=== PATIENT | female | born 1955 | race Caucasian/White ===

== ENCOUNTER → 2018-03-02 15:55 | Outpatient (CLI) | payer OTHER, SELFPAY ==
--- NOTE | 2018-03-02 16:12 | XR_ITS ---
EXAM: XR cervical spine 5V HISTORY: Neck pain ITS.REASON: CERVICALGIA ORDERING PHYSICIAN: Erin Carmichael PATIENT AGE: 62 years COMPARISON: 03/19/2016 FINDINGS: Normal alignment. No fracture or dislocation. No lytic or blastic change. There is multilevel degenerative disc disease at C4-5 and greater at C5-C6 and C6-C7 and C7-T1. Prominent anterior bridging osteophytes are present at C3 to see 7/T1 consistent with DISH. No significant foraminal narrowing evident. IMPRESSION: Degenerative disc disease from C4 to T1. Diffuse idiopathic skeletal hyperostosis of the cervical spine
== END ==
PROVIDERS: PCP Family Medicine; Visit Provider Nurse Practitioner
DX: M54.2 Cervicalgia (principal)
CPT/HCPCS: 72050

== ENCOUNTER → 2018-03-04 14:58 | Outpatient (CLI) | payer OTHER, SELFPAY ==
--- NOTE | 2018-03-04 15:02 | NVE_ITS ---
Venous Exam Indications: 729.5 Pain in limb. IMPRESSIONS 1. There is no evidence of significant Reflux. 2. No evidence of deep or superficial vein thrombosis involving the right lower extremity History: Right lower extremity pain. Swelling of the right lower extremity. Risk factors: Hypertension. Patient denies trauma. Patient takes 81 mg ASA daily. Renal disease. Right lower extremity venous duplex evaluation. Doppler flow study including spectral analysis, color and vincent scale imaging. Location: Vascular laboratory. Patient status: Outpatient. Tables: Venous flow and imaging: + +-------+ + Location Overall Flow properties + +-------+ + Right common femoral Patent Normal phasicity; spontaneous; normal augmentation; compressible + +-------+ + Right saphenofemoral junction Patent Compressible + +-------+ + Right profunda femoral Patent Compressible + +-------+ + Right femoral Patent Normal phasicity; spontaneous; normal augmentation; compressible + +-------+ + Right greater saphenous Patent Normal phasicity; spontaneous; normal augmentation; compressible + +-------+ + Right popliteal Patent Normal phasicity; spontaneous; normal augmentation; compressible + +-------+ + Right posterior tibial Patent Compressible + +-------+ + Right peroneal Patent Compressible + +-------+ + Right gastrocnemius Patent Compressible + +-------+ + Right soleal Patent Compressible + +-------+ + (Report amended ) Electronically signed by: Misael Webster [id number]
== END ==
PROVIDERS: PCP Nurse Practitioner; Visit Provider Nurse Practitioner
DX: M79.604 Pain in right leg (principal)
CPT/HCPCS: 93971

== ENCOUNTER 2018-05-16 13:33 | Emergency (ER) | payer OTHER, SELFPAY ==
[2018-05-16 13:40] VITALS: BP 128/61; PULSE 108; RESP 20; TEMP 37.2; O2SAT 97; BMI 35.9
--- NOTE | 2018-05-16 13:49 | XR_ITS ---
XR femur LT 2V, XR hip LT 2-3V w/pelvis Ordering Physician: Neelima Rosales MD Patient Age: 63 years: Female HISTORY: ITS.REASON: fall Dog knocked her off porch. Left hip pain large hematoma left hip. TECHNIQUE:. LEFT HIP 2 VIEWS WITH AP PELVIS LEFT FEMUR 2 views femur COMPARISON : CT abdomen 2011 which included left hip ====== LEFT HIP 2 VIEWS with AP pelvis Left hip no acute fracture. Hip joint spaces well-maintained. Mild osseous protuberance at the lesser trochanter likely reflects calcification along ligamentous attachment.. . AP PELVIS AP osseous pelvisis intact with no additional features . Hip joint spaces are well-maintained bilaterally - LEFT FEMUR 2 views femur Left femur is intact no fracture. Arthritic changes at the left knee most evident at medial compartment. The left femoral shaft intact. IMPRESSION: Left hip intact no fracture No acute findings Osseous pelvis intact Left femur intact no fracture Arthritic changes at left knee
--- NOTE | 2018-05-16 13:49 | XR_ITS ---
XR foot LT min 3V HISTORY: Left foot pain after a fall ITS.REASON: fall ORDERING PHYSICIAN: Neelima Rosaels MD PATIENT AGE: 63 years COMPARISON: Left foot 04/06/2014 FINDINGS: There is an oblique fracture through the head of the second metatarsal without significant angulation. There is a probable fracture through the head of the third metatarsal as well. There may be an old healed fracture at the base of the third metatarsal. All phalanges appear intact. The tarsal bones appear intact, there is a small accessory navicular bone is noted previously. There are prominent spurs of the calcaneus at insertion of plantar tendon and Achilles tendon. Again noted is the metallic plate distal fibula with several threaded screws. IMPRESSION: Fractures of the heads of the second third metatarsals along with rather prominent calcaneal spurs as noted
--- NOTE | 2018-05-16 15:09 | HMH.EDFALL ---
ED Disposition Clinical Impression: Metatarsal stress fracture of left foot, Hematoma of left hip, Head injury Disposition: Home, Self-Care Condition on Discharge: Fair Additional Instructions: 1- to see mikel Allen immediately after the ED visit. 2- elevate left hip and ice. 3- use crutches or walker 4- head injury instructions and return for a ct scan as we discussed. 5- follow up with pcp in AM. Referrals: Erin Carmichael APRN [Primary Care Provider] - - Critical Care Critical Care Time: No Attestation: On 05/16/18, the high probability of a clinically significant, sudden or life threatening deterioration of the following system(s) required my full and direct attention, intervention and personal management. The time I documented below is in addition to time spent performing reported procedures but includes the following listed in this critical care notation. Medical Decision Making - Mickey Inquiry Pt receiving controlled substance: No Mickey was queried for this patient: No Vital Signs: 05/16/18 13:40 Temperature 98.9 F Temperature Source Oral Pulse Rate [Right Radial] 108 H Respiratory Rate 20 Blood Pressure [Right Arm] 128/61 Blood Pressure Mean [Right Arm] 83 Blood Pressure Source [Right Arm] Automatic Cuff Blood Pressure Position [Right Arm] Sitting 02 Sat by Pulse Oximetry 97 Oxygen Delivery Method Room Air Orders (Tests/Meds): ED MEDICATIONS Discontinued Medications Generic Name Dose Route Start Last Admin Trade Name Freq PRN Reason Stop Dose Admin Hydrocodone Bitart/Acetaminophen 1 tab 05/16/18 13:51 05/16/18 13:55 [place] 5/325mg Tablet PO 05/16/18 13:52 1 tab ONCE ONE Administration ORDERS Category Date Time Status Femur XR left 2 views [XR femur LT 2V] Stat Exams 05/16/18 13:50 Taken Foot XR left minimum 3 views [XR foot LT min 3V] Stat Exams 05/16/18 13:49 Taken XR hip LT 2-3V w/pelvis Stat Exams 05/16/18 13:49 Taken - Radiology Data #1 Image(s): Hip, Femur, Foot/Toes Image Reviewed: Yes I reviewed the patient's radiology image Preliminary Findings: Normal/NAD I reviewed the hip femur and x-ray with Dr. Quintanilla and there was no acute fracture. I reviewed her left foot x-ray with Dr. Scott and she does have a sling left second and possible left third metatarsal fracture. Medical Decision Narrative: I reviewed the hip femur and x-ray with Dr. Quintanilla and there was no acute fracture. I reviewed her left foot x-ray with Dr. Cook and she does have a sling left second and possible left third metatarsal fracture. I spoke with Dr. Cook the junior accounting clerk who agreed to see the patient after immediately the ED visit. The patient declined declined undergoing a CT scan of her head in the presence of her daughter . They were agreeable for a head injury instruction. Fall HPI - General Chief Complaint: Extremity Injury, Lower Stated Complaint: AO 05/16/18 injury to left fot Time Seen by Provider: 05/16/18 13:45 Mode of Arrival: Wheelchair Limitations: No Limitations Description of Symptoms (Recalled from ER Triage Doc. by RN): Pt states that she was taking the dog outside when it took off after a rabbit and she fell hitting the concrete and ground on her left hip. States he left foot and hip hurt. Bruising and swelling noted to left hip. She states that she hit her head but denies any LOC. Pt is able to feel when I touch her left foot and leg. - History of Present Illness HPI Narrative: 63 years old white female who was walking her dog when he saw a rabbit so he injected his chain she tripped fell and landed on her left foot and left hip region with a result of large size hematoma on the lateral aspect of the upper thigh. Also she stated that she hit her head with no loss of consciousness nausea or neck pain. The patient was able to stand up walk up the steps but her left foot was hurting. Sh
--- NOTE | 2018-05-16 15:13 | ED_ITS ---
ED Disposition Clinical Impression: Metatarsal stress fracture of left foot, Hematoma of left hip, Head injury Disposition: Home, Self-Care Condition on Discharge: Fair Additional Instructions: 1- to see mikel Allen immediately after the ED visit. 2- elevate left hip and ice. 3- use crutches or walker 4- head injury instructions and return for a ct scan as we discussed. 5- follow up with pcp in AM. Referrals: Erin Carmichael APRN [Primary Care Provider] - - Critical Care Critical Care Time: No Attestation: On 05/16/18, the high probability of a clinically significant, sudden or life threatening deterioration of the following system(s) required my full and direct attention, intervention and personal management. The time I documented below is in addition to time spent performing reported procedures but includes the following listed in this critical care notation. Medical Decision Making - Mickey Inquiry Pt receiving controlled substance: No Mickey was queried for this patient: No Vital Signs: 05/16/18 13:40 Temperature 98.9 F Temperature Source Oral Pulse Rate [Right Radial] 108 H Respiratory Rate 20 Blood Pressure [Right Arm] 128/61 Blood Pressure Mean [Right Arm] 83 Blood Pressure Source [Right Arm] Automatic Cuff Blood Pressure Position [Right Arm] Sitting 02 Sat by Pulse Oximetry 97 Oxygen Delivery Method Room Air Orders (Tests/Meds): ED MEDICATIONS Discontinued Medications Generic Name Dose Route Start Last Admin Trade Name Freq PRN Reason Stop Dose Admin Hydrocodone Bitart/Acetaminophen 1 tab 05/16/18 13:51 05/16/18 13:55 [place] 5/325mg Tablet PO 05/16/18 13:52 1 tab ONCE ONE Administration ORDERS Category Date Time Status Femur XR left 2 views [XR femur LT 2V] Stat Exams 05/16/18 13:50 Taken Foot XR left minimum 3 views [XR foot LT min 3V] Stat Exams 05/16/18 13:49 Taken XR hip LT 2-3V w/pelvis Stat Exams 05/16/18 13:49 Taken - Radiology Data #1 Image(s): Hip, Femur, Foot/Toes Image Reviewed: Yes I reviewed the patient's radiology image Preliminary Findings: Normal/NAD I reviewed the hip femur and x-ray with Dr. Quintanilla and there was no acute fracture. I reviewed her left foot x-ray with Dr. Scott and she does have a sling left second and possible left third metatarsal fracture. Medical Decision Narrative: I reviewed the hip femur and x-ray with Dr. Quintanilla and there was no acute fracture. I reviewed her left foot x-ray with Dr. Cook and she does have a sling left second and possible left third metatarsal fracture. I spoke with Dr. Cook the sumatra opener who agreed to see the patient after immediately the ED visit. The patient declined declined undergoing a CT scan of her head in the presence of her daughter . They were agreeable for a head injury instruction. Fall HPI - General Chief Complaint: Extremity Injury, Lower Stated Complaint: AO 05/16/18 injury to left fot Time Seen by Provider: 05/16/18 13:45 Mode of Arrival: Wheelchair Limitations: No Limitations Description of Symptoms (Recalled from ER Triage Doc. by RN): Pt states that she was taking the dog outside when it took off after a rabbit and she fell hit
[2018-05-16 15:38] VITALS: BP 132/79; PULSE 88; RESP 16; TEMP 36.7
== END 2018-05-16 15:47 | disposition home or self-care (01) ==
PROVIDERS: Emergency Provider Emergency Medicine; Family Provider Nurse Practitioner Family; PCP Nurse Practitioner
DX: M84.375A Stress fracture, left foot, initial encounter for fracture (principal); S70.02XA Contusion of left hip, initial encounter; Z79.82 Long term (current) use of aspirin; E11.9 Type 2 diabetes mellitus without complications; M81.0 Age-related osteoporosis without current pathological fracture; W01.0XXA Fall on same level from slipping, tripping and stumbling without subsequent striking against object, initial encounter; Y93.K1 Activity, walking an animal; Y92.018 Other place in single-family (private) house as the place of occurrence of the external cause
CPT/HCPCS: 73502; 73552; 73630; 99282

== ENCOUNTER → 2018-05-19 14:14 | Outpatient (CLI) | payer OTHER, SELFPAY ==
--- NOTE | 2018-05-19 | NVE_ITS ---
Venous Exam Indications: 729.5 Pain in limb. IMPRESSIONS No evidence of deep or superficial vein thrombosis involving the left lower extremity Complete lower extremity venous duplex evaluation. Doppler flow study including spectral analysis, color and vincent scale imaging. Location: Vascular laboratory. Patient status: Outpatient. Tables: Venous flow and imaging: + +-------+ + Location Overall Flow properties + +-------+ + Left common femoral Patent Normal phasicity; spontaneous; normal augmentation; compressible + +-------+ + Left saphenofemoral junction Patent Compressible + +-------+ + Left profunda femoral Patent Compressible + +-------+ + Left femoral Patent Normal phasicity; spontaneous; normal augmentation; compressible + +-------+ + Left greater saphenous Patent Normal phasicity; spontaneous; normal augmentation; compressible + +-------+ + Left popliteal Patent Normal phasicity; spontaneous; normal augmentation; compressible + +-------+ + Left posterior tibial Patent Compressible + +-------+ + Left peroneal Patent Compressible + +-------+ + Left gastrocnemius Patent Compressible + +-------+ + Left soleal Patent Compressible + +-------+ + (Report amended ) Electronically signed by: Misael Webster [id number]
== END ==
PROVIDERS: PCP Nurse Practitioner; Visit Provider Nurse Practitioner
DX: M25.552 Pain in left hip (principal); M25.452 Effusion, left hip
CPT/HCPCS: 93971

== ENCOUNTER → 2018-05-30 12:03 | Outpatient (CLI) | payer OTHER, SELFPAY ==
--- NOTE | 2018-05-30 12:26 | XR_ITS ---
XR hip LT 2-3V w/pelvis HISTORY: ITS.REASON: LT HIP PAIN ORDERING PHYSICIAN: Erin Carmichael PATIENT AGE: 63 years COMPARISON: 05/16/2018 FINDINGS: There are mild osteoarthritic changes of the left tibia similar to the previous exam. Calcific density is present at the lesser trochanter may be due to ligamentous calcification or an old avulsion fracture. No acute fracture, dislocation, or destructive osseous evident. IMPRESSION: Mild osteoarthritis of the left hip Ligamentous calcification versus old avulsion injury at the left
== END ==
PROVIDERS: PCP Nurse Practitioner; Visit Provider Nurse Practitioner
DX: M25.552 Pain in left hip (principal)
CPT/HCPCS: 73502

== ENCOUNTER → 2018-06-07 10:24 | Outpatient (CLI) | payer OTHER, SELFPAY ==
--- NOTE | 2018-06-07 10:26 | XR_ITS ---
XR foot wt bearing LT 3V HISTORY: Fracture ITS.REASON: fracture follow up ORDERING PHYSICIAN: Erica Jerry DPM PATIENT AGE: 63 years COMPARISON: Left foot 05/16/2018 FINDINGS: There is some blurring of the fracture line of the head of the second metatarsal and also of the head of the third metatarsal. The prominent calcaneal spurs are again noted and there is mild pes planus. IMPRESSION: Healing fractures heads of second third metatarsal with only minor stable angulation at the fracture sites
== END ==
PROVIDERS: Visit Provider Podiatrist
DX: T14.8XXA Other injury of unspecified body region, initial encounter (principal)
CPT/HCPCS: 73630

== ENCOUNTER → 2018-07-13 08:07 | Outpatient (CLI) | payer OTHER, SELFPAY ==
--- NOTE | 2018-07-13 08:08 | XR_ITS ---
XR foot wt bearing LT 3V HISTORY: Follow-up fracture ITS.REASON: fracture ORDERING PHYSICIAN: Erica Jerry DPM PATIENT AGE: 63 years COMPARISON: 06/07/2018 FINDINGS: Healing oblique fractures present involving the distal shaft of the second metatarsal and the distal shaft of the third metatarsal. Increasing callous formation is present with good alignment and no significant displacement. There has been prior ORIF of the distal fibula. IMPRESSION: Healing nondisplaced fractures of the second and third metatarsals
== END ==
PROVIDERS: Visit Provider Podiatrist
DX: S92.302A Fracture of unspecified metatarsal bone(s), left foot, initial encounter for closed fracture (principal)
CPT/HCPCS: 73630

== ENCOUNTER → 2018-08-05 09:39 | Outpatient (CLI) | payer OTHER, SELFPAY ==
--- NOTE | 2018-08-05 09:40 | XR_ITS ---
XR foot wt bearing LT 3V HISTORY: Follow-up fracture ITS.REASON: fracture follow-up ORDERING PHYSICIAN: Erica Jerry DPM PATIENT AGE: 63 years COMPARISON: 07/13/2018 FINDINGS: There is a healing oblique fracture of the distal aspect of the second metatarsal and the distal aspect of the third metatarsal. There is good alignment. Only minimal lateral displacement of the distal fracture fragment the second digit noted. Prior ORIF of the distal fibula IMPRESSION: Overall no change healing second and third metatarsal fractures
== END ==
PROVIDERS: PCP Nurse Practitioner; Visit Provider Podiatrist
DX: S92.322A Displaced fracture of second metatarsal bone, left foot, initial encounter for closed fracture (principal); T14.8XXA Other injury of unspecified body region, initial encounter; M79.672 Pain in left foot
CPT/HCPCS: 73630

== ENCOUNTER → 2018-09-02 12:35 | Outpatient (CLI) | payer MEDICAID, SELFPAY ==
--- NOTE | 2018-09-02 12:41 | XR_ITS ---
XR foot wt bearing LT 3V HISTORY: ITS.REASON: fracture follow up ORDERING PHYSICIAN: Erica Jerry DPM PATIENT AGE: 63 years COMPARISON: 07/13/2018 FINDINGS: Healing fractures once again noted involving the distal aspect of the second metatarsal. Fracture line is less apparent and nondisplaced. Healing nondisplaced fracture of the distal aspect of the third metatarsal also noted unchanged. Prior ORIF of the ankle. IMPRESSION: Good alignment healing fractures third and second metatarsals
== END ==
PROVIDERS: PCP Family Medicine; Visit Provider Podiatrist
DX: M84.375A Stress fracture, left foot, initial encounter for fracture (principal)
CPT/HCPCS: 73630

== ENCOUNTER → 2018-11-07 15:22 | Outpatient (CLI) | payer MEDICAID, SELFPAY ==
--- NOTE | 2018-11-07 15:30 | XR_ITS ---
EXAM: XR lumbar spine min 4V HISTORY: Low back pain ITS.REASON: LEFT ARM NUMBNESS,CERVICALGIA,LEFT SIDED LOW BACK PAIN ORDERING PHYSICIAN: Rose Carlson PATIENT AGE: 63 years COMPARISON: None FINDINGS: Normal alignment. No fracture or dislocation. Mild degenerative disc disease from L3 to S1 with some decrease in the disc space and endplate osteophytes. Mild facet arthritic changes L4-L5 and L5-S1. Incidental vascular calcification of the aorta. IMPRESSION: Mild lumbar spondylosis with degenerative disc disease and facet arthritic change
--- NOTE | 2018-11-07 15:30 | XR_ITS ---
EXAM: XR cervical spine 5V HISTORY: ITS.REASON: LEFT ARM NUMBNESS,CERVICALGIA,LEFT SIDED LOW BACK PAIN ORDERING PHYSICIAN: Rose Carlson PATIENT AGE: 63 years COMPARISON: None FINDINGS: Normal alignment. Degenerative disc disease is present from C4-T1. Prominent bridging anterior osteophytes are present at C3, C4, C5, C6, and C7 consistent with DISH of the cervical spine. No fracture or dislocation. Mild foraminal narrowing on the left at C6-C7. Carotid artery calcification is also noted. Mild facet hypertrophic changes present on the left C3-C7 IMPRESSION: 1. DISH of the cervical spine 2. Degenerative disc disease and facet arthritic change
--- NOTE | 2018-11-07 15:30 | XR_ITS ---
XR shoulder LT min 2V HISTORY: Left shoulder pain ITS.REASON: LEFT ARM NUMBNESS,CERVICALGIA,LEFT SIDED LOW BACK PAIN ORDERING PHYSICIAN: Roes Carlson PATIENT AGE: 63 years Comparison: None FINDINGS: There are mild osteoarthritic changes of the AC joint and glenohumeral joint. Prominent spurring is present along the inferior surface of the acromion causing subacromial stenosis and may result in impingement symptomatology upon the rotator cuff and could be confirmed with MRI if clinically warranted. No fracture or dislocation. No lytic or blastic change. IMPRESSION: Mild osteoarthritis with subacromial stenosis
== END ==
PROVIDERS: PCP Nurse Practitioner Family; Visit Provider Nurse Practitioner Family
DX: M54.2 Cervicalgia (principal); M54.42 Lumbago with sciatica, left side; R20.0 Anesthesia of skin
CPT/HCPCS: 72050; 72110; 73030

== ENCOUNTER → 2018-12-01 15:30 | Outpatient (CLI) | payer MEDICAID, SELFPAY ==
--- NOTE | 2018-12-01 15:34 | MR_ITS ---
MR cervical spine wo con, MR 3-d myelogram/MRCP HISTORY: Worsening neck pain. Pain is getting worse. ITS.REASON: TENDON CALCIFICATION ORDERING PHYSICIAN: Rose Carlson PATIENT AGE: 63 years Comparison: X-RAY 11/07/18. MRI 03/19/16 TECHNIQUE: Standard multiplanar multiecho sequences are performed without contrast. 3-D MIP and myelographic images are also rendered and reviewed FINDINGS: There is normal alignment. The cranio-cervical junction is unremarkable. C2-C3: Unremarkable. C3-C4: Unremarkable. C4-C5: Anterior osteophytes otherwise negative. C5-C6: Degenerative disc disease with a broad-based central/right paracentral and left paracentral disc protrusion. This is causing canal stenosis and bilateral lateral recess narrowing. The canal measures 7 mm. There is moderate bilateral foraminal narrowing. This broad-based central disc protrusion has increased in size compared to the previous exam. There is impingement upon the central aspect of the cord by the disc with flattening of the cord. C6-C7: Degenerative disc disease with bulging disc along with a left paracentral and foraminal disc osteophyte complex. There is canal stenosis of 8 mm. A left paracentral disc osteophyte complexes causing flattening upon the left aspect of the cord with severe left lateral recess and foraminal narrowing. This does not appear significantly changed. C7-T1: Unremarkable. Prominent anterior osteophytes are present C3-C7 consistent with diffuse Diffuse idiopathic skeletal hyperostosis IMPRESSION: 1. Diffuse idiopathic skeletal hyperostosis of the cervical spine. 2. C5-C6: Degenerative disc disease with a broad-based central/right paracentral and left paracentral disc protrusion. This is causing canal stenosis and bilateral lateral recess narrowing. The canal measures 7 mm. There is moderate bilateral foraminal narrowing. This broad-based central disc protrusion has increased in size compared to the previous exam. There is impingement upon the central aspect of the cord by the disc with flattening of the cord. 3. C6-C7: Degenerative disc disease with bulging disc along with a left paracentral and foraminal disc osteophyte complex. There is canal stenosis of 8 mm. A left paracentral disc osteophyte complexes causing flattening upon the left aspect of the cord with severe left lateral recess and foraminal narrowing. This does not appear significantly changed.
== END ==
PROVIDERS: PCP Nurse Practitioner Family; Visit Provider Nurse Practitioner Family
DX: M65.80 Other synovitis and tenosynovitis, unspecified site (principal)
CPT/HCPCS: 72141; 76376

== ENCOUNTER → 2019-03-24 10:48 | Outpatient (CLI) | payer MEDICAID, SELFPAY ==
--- NOTE | 2019-03-24 10:51 | XR_ITS ---
XR KUB HISTORY: ITS.REASON: RT FLANK PAIN ORDERING PHYSICIAN: Rose Carlson APRN PATIENT AGE: 64 years COMPARISON: None FINDINGS: There are surgical clips in the right upper quadrant. No obvious renal or ureteral calculi. There are multiple small calcific densities in the pelvis and may be due to phleboliths. There are mild degenerative changes in the hips. IMPRESSION: No acute finding
== END ==
PROVIDERS: PCP Nurse Practitioner Family; Visit Provider Nurse Practitioner Family
DX: R10.9 Unspecified abdominal pain (principal)
CPT/HCPCS: 74018

== ENCOUNTER → 2019-04-06 08:49 | Outpatient (CLI) | payer MEDICAID, SELFPAY ==
[2019-04-06 09:06] LABS: Blood Urea Nitrogen 8 mg/dL (7-18); Creatinine,Serum 0.56 mg/dL (0.55-1.02); Estimated Glomerular Filt Rate 110 ml/min (>60); GFR (African American) 133 ML/MIN (>60)
--- NOTE | 2019-04-06 09:29 | CT_ITS ---
CT abdomen pelvis wo/w con INDICATION: Right flank pain. HISTORY of kidney stones. ITS.REASON: RT FLANK PAIN ORDERING PHYSICIAN: Rose Carlson APRN PATIENT AGE: 64 years COMPARISON: CT abdomen and pelvis 04/06/2019 . TECHNIQUE: CT abdomen pre and postcontrast. 75 cc Optiray 350 IV contrast use for today's 70 second post contrast image set.. No delayed images performed . No oral contrast utilized. Axial images obtained with sagittal and coronal reformats. All CT scans at the facility use one or more dose reduction, viz: automated exposure control, ma/kV adjustment per patient size (including targeted exams where dose is matched to indication, i.e. head), or iterative reconstruction technique. FINDINGS: Lower thorax. Nearly 10 mm peripheral nodule at the RLL on axial image 6. . This was not seen on 2012 CT abdomen which included this same region. Thus This warrants close follow-up with CT chest within 2 months and consider pulmonary consult to further evaluate. Conceivably could be a small inflammatory focus but cannot exclude significant developing lung nodule Heart appears normal size with no pericardial effusion. CT abdomen/pelvis.: Spleen.. Mild splenomegaly On the coronal view spleen measuring 15.5 cm height and only slightly larger than 2012. It again appears more normal size on the axial images where it measures up to 14 cm AP x 8 cm wide at does appear to be elongated . Also question of some early portal venous collaterals noting generous caliber splenic vein.. Portal vein at hilum of liver measures up to 15 mm. Upper normal size. But with these-these features appear appearing similar to 2012 CT. Warrants correlation with LFTs Liver. No focal lesions. Minor fatty changes Liver Upper normal size right lobe measuring up to 21 cm height. Similar appearance to 2012. Gallbladder removed. Stable slight generous biliary ducts reflecting prior cholecystectomy changes .. Pancreas: Unremarkable no ductal dilatation. No focal lesion. Adrenals. Unremarkable. No retroperitoneal nor mesenteric nor pelvic adenopathy. Mild diffuse calcification normal caliber aorta. TRACT.: No urinary tract calculi nor obstruction. Kidneys appear satisfactory. Ureters unremarkable. No ureteral dilatation. Normal caliber. No ureteral calculi seen on symptomatic right side. PELVIS. The pattern of phleboliths at the pelvic basin is unchanged since 2012 these reside adjacent to the distal right ureter. Urinary bladder moderately distended. No calculi. No pelvic mass nor adenopathy. Hysterectomy. No free fluid at pelvis. GI TRACT moderate solid stool is seen throughout the colon including rectum. [place] generous stool is seen at the transverse colon has and may reflect mild constipation. Gas and some minimal liquid stool at right colon and to the hepatic flexure is noted. Terminal ileum appears normal. Appendix is been removed. Small bowel appears normal in caliber throughout. Stomach unremarkable. Bones. No significant new findings. The small sclerotic focus at the neck margin left SI joint 8 mm size was seen in 2012. Stable. Minimal disc bulge L4/5 L3/4 noted along with moderate facet hypertrophy at this level. IMPRESSION 1. No acute findings in the abdomen or pelvis. 2. No urinary tract calculi nor obstruction. Kidneys and ureters appear unchanged as prior study 3. Regard right-sided pain: Note some moderate liquid stool with a few air-fluid levels at the right colon. (Nonspecific appearance here but could not totally exclude early developing enterocolitis with this picture) Otherwise there is slight increased solid stool throughout the transverse colon & left colon which may reflect some minor constipation in these latter regions si
== END ==
PROVIDERS: Visit Provider Nurse Practitioner Family
DX: R10.9 Unspecified abdominal pain (principal)
CPT/HCPCS: 36415; 74178; 82565; 84520; Q9967

== ENCOUNTER → 2019-06-12 10:04 | Outpatient (CLI) | payer MEDICAID, SELFPAY ==
--- NOTE | 2019-06-12 10:13 | XR_ITS ---
XR foot LT min 3V HISTORY: ITS.REASON: SWELLING OF LEFT FOOT ORDERING PHYSICIAN: Rose Carlson APRN PATIENT AGE: 64 years COMPARISON: None FINDINGS: There is orthopedic hardware with compression plate and fixation screws involving the distal fibula. There is diffuse mild osteopenia. Joint spaces and alignment are normal. There is no acute fracture. There is small spur along the superior aspect at the first tarsal/metatarsal joint. There is a small 3 mm plantar calcaneal spur and a prominent exostosis likely spur related to the Achilles tendon attachment to the calcaneus. IMPRESSION: No acute fracture. Prior surgery. Plantar and posterior calcaneal spurs. Degenerative changes at the first tarsal/metatarsal joint.
== END ==
PROVIDERS: PCP Nurse Practitioner Family; Visit Provider Nurse Practitioner Family
DX: M79.89 Other specified soft tissue disorders (principal)
CPT/HCPCS: 73630

== ENCOUNTER 2019-06-13 14:30 | Outpatient (RCR) | payer MEDICAID, SELFPAY | END 2019-06-13 14:35 | disposition home or self-care (01) | LOC: PT 14:30 | PROVIDERS: Visit Provider Neurological Surgery | DX: M54.2 Cervicalgia (principal) | CPT/HCPCS: 97010; 97014; 97035; 97110; 97140; 97163; G0283 ==

== ENCOUNTER → 2019-06-19 15:56 | Outpatient (CLI) | payer MEDICAID, SELFPAY ==
[2019-06-19 16:12] LABS: Basophils % 0.1 % (0.1-2.0); Eosinophils # 0.1 K/mm3 (0.0-0.4); Eosinophils % 2.4 % (0.1-12.0); Hematocrit 42.7 % (37.0-47.0); Hemoglobin 13.2 g/dL (12.2-16.2); Lymphocytes # 1.2 K/mm3 (0.7-4.5); Lymphocytes % 22.5 % (10-50); Mean Corpuscular Hemoglobin 27.9 pg (27.0-31.2); Mean Corpuscular Volume 89.9 fl (81-99); Mean Platelet Volume 8.1 fl (7.4-10.4); Monocytes # 0.2 K/mm3 (0.1-1.0); Monocytes % 4.3 % (1.7-9.3); Neutrophils # 3.6 K/mm3 (1.8-7.8); Neutrophils % 70.8 % (37.0-80.0); Platelet Count 171 K/mm3 (142-424); Red Blood Count 4.75 M/mm3 (4.20-5.40); Red Cell Distribution Width 15.3 % (11.5-17.5); White Blood Count 5.1 K/mm3 (4.8-10.8)
[2019-06-19 17:00] LABS: Hemoglobin A1C 8.7 % (0.0-7.0)
[2019-06-19 17:49] LABS: Alanine Aminotransferase 79 U/L (12-78); Albumin Level 3.6 gm/dL (3.4-5.0); Albumin/Globulin Ratio 1.2 (1.1-1.8); Alkaline Phosphatase 142 U/L (46-116); Anion Gap 12.1 mEq/L (5-15); Aspartate Amino Transferase 49 U/L (15-37); Bilirubin,Total 0.3 mg/dL (0.2-1.0); Blood Urea Nitrogen 10 mg/dL (7-18); Calcium 9.1 mg/dL (8.5-10.1); Carbon Dioxide 30 mmol/L (21.0-32.0); Chloride 106 mmol/L (98-107); Creatinine,Serum 0.59 mg/dL (0.55-1.02); Estimated Glomerular Filt Rate 103 ml/min (>60); GFR (African American) 125 ML/MIN (>60); Globulin 3.1 gm/dl (1.3-3.2); Glucose 214 mg/dL (74-106); Potassium 4.1 mmoL/L (3.5-5.1); Sodium 144 mmol/L (136-145); Total Protein,Serum 6.7 gm/dL (6.4-8.2); Uric Acid 3.7 mg/dL (2.6-7.2)
== END ==
PROVIDERS: Visit Provider Podiatrist
DX: M77.9 Enthesopathy, unspecified (principal); E11.9 Type 2 diabetes mellitus without complications; Z79.84 Long term (current) use of oral hypoglycemic drugs
CPT/HCPCS: 36415; 80053; 83036; 84550; 85025

== ENCOUNTER → 2019-06-26 06:23 | Outpatient (CLI) | payer MEDICAID, SELFPAY ==
--- NOTE | 2019-06-26 06:30 | NM_ITS ---
CARDIOLITE SPECT MYOCARDIAL PERFUSION LEXISCAN, REST AND STRESS: [facility] REVIEW QGS EF AND WALL MOTION EVALUATION: QPS - PERFUSION EVALUATION HISTORY: SOB, HTN, DM, Family history DOSE: 9.56 mCi technetium 99m mibi intravenously at rest followed by 31.3 mCi technetium 99m mibi following the intravenous ministration of 0.4 mg of Lexiscan. Resting blood pressure is 122/54. Stress blood pressure 122/55. FINDINGS: Ejection fraction is calculated to be 69%. Stress images reveal severely decreased activity in the anterior wall with decreased activity in a portion of the lateral wall. Rest images reveal mildly improved activity in the anterior lateral wall IMPRESSION: This test is not entirely consistent with breast attenuation therefore anterior lateral ischemia is most likely. Normal ejection fraction normal wall motion. High risk stress test
--- NOTE | 2019-06-26 07:17 | HMH.ITSHM ---
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 []METFORMIN MELOXICAM LINACLOTIDE LEVOTHYROXINE GLIPIZIDE GABAPENTIN FUROSEMIDE CANAGLIFLOZIN BISOPROLOL BACLOFEN ASA ALLOPURINOL FLUTICASONE CETIRIZINE
--- NOTE | 2019-06-26 08:36 | NVE_ITS ---
Venous Exam Indications: 729.5 Pain in limb. 782.3 Edema. IMPRESSIONS 1. There is no evidence of significant Reflux. 2. No evidence of deep or superficial vein thrombosis involving the left lower extremity Left lower extremity venous duplex evaluation. Doppler flow study including spectral analysis, color and vincent scale imaging. Location: Vascular laboratory. Patient status: Outpatient. Tables: Venous flow and imaging: + +-------+ + + Location Overall Flow properties Comments + +-------+ + + Left common femoral Patent Normal phasicity; spontaneous; normal augmentation; compressible + +-------+ + + Left saphenofemoral Patent Compressible junction + +-------+ + + Left profunda femoral Patent Compressible + +-------+ + + Left femoral Patent Normal phasicity; spontaneous; normal augmentation; compressible + +-------+ + + Left greater saphenous Patent Normal phasicity; spontaneous; normal augmentation; compressible + +-------+ + + Left popliteal Patent Normal phasicity; spontaneous; normal augmentation; compressible + +-------+ + + Left posterior tibial Patent Compressible Vessels difficult to image. + +-------+ + + Left peroneal Patent Compressible Vessels difficult to image. + +-------+ + + Left gastrocnemius Patent Compressible Vessels difficult to image. + +-------+ + + Left soleal Patent Compressible Vessels difficult to image. + +-------+ + + (Report amended ) Electronically signed by: Misael Webster [id number]
--- NOTE | 2019-06-26 08:36 | CA_ITS ---
PROCEDURE: 2-D M-mode and color Doppler study INDICATIONS FOR THE TEST: Chest pain+ COPD Heart Murmur Tobacco Smoking Palpitations Fatigue Syncope Edema+ Hypertension+Diabetes Mellitus+ Rheumatic Fever SOB RAMSAY+Obesity+Hyperlipidemia Family History HD Additional History ABN EKG PATIENT INFORMATION HEIGHT: 63 WEIGHT: 226 GENDER: Female B/P: 171/76 2-D/M-MODE INTERPRETATION: 2-D MEASUREMENTS OBSERVED VALUES IN CMS Right Ventricular Dimension (RVDd) 2.0 Interventricular Septum (Thickness)(IVsd) 1.1 Left Ventricular Internal Dimensions(LVIDd) 5.0 Left Ventricular Posterior Wall (Thickness)(LVPWd) 1.0 Aortic Root 2.2 Aortic Cusp Separation 1.6 Left Atrial Dimensions (LAD) 4.1 2D 1. Left atrium is mildly enlarged, left ventricle is normal size, mild concentric left ventricular hypertrophy, visually estimated ejection fraction 55% with no regional wall motion abnormality. 2. The right atrium and right ventricle are normal size and contractility. 3. The aortic valve is thickened and calcified leaflet continue to display mobility. 4. The mitral and tricuspid valve leaflets are minimally thickened. 5. The pulmonic valve is poorly visualized. 6. No significant pericardial effusion noted. DOPPLER INTERROGATION: Doppler interrogation of the aortic, mitral and tricuspid valvular presence of mild mitral and tricuspid regurgitation, tricuspid regurgitation jet velocity is inadequate for calculation of the right ventricular systolic pressure, grade 1 diastolic dysfunction seen with tissue Doppler evidence of raised left atrial pressure. CONCLUSION: 1. Mildly enlarged left atrium, normal left ventricular size, mild concentric left ventricular hypertrophy, visually estimated ejection fraction 55% with no regional wall motion abnormality, grade 1 diastolic dysfunction seen with tissue Doppler is eccentric pressure. 2. Thickened and calcified aortic without significant aortic stenosis aortic insufficiency. 3. Mild mitral and tricuspid regurgitation. 4. No significant pericardial effusion noted.
== END ==
PROVIDERS: PCP Nurse Practitioner Family; Visit Provider Internal Medicine
DX: R07.9 Chest pain, unspecified (principal); R06.02 Shortness of breath; R94.31 Abnormal electrocardiogram [ECG] [EKG]; R60.9 Edema, unspecified
CPT/HCPCS: 78452; 93017; 93306; 93971; A9502; J2785

== ENCOUNTER → 2019-07-11 10:01 | Outpatient (CLI) | payer MEDICAID, SELFPAY ==
[2019-07-11 10:35] LABS: Basophils % 0.3 % (0.1-2.0); Eosinophils # 0.1 K/mm3 (0.0-0.4); Eosinophils % 1.5 % (0.1-12.0); Hematocrit 43.8 % (37.0-47.0); Hemoglobin 13.9 g/dL (12.2-16.2); Lymphocytes # 1.1 K/mm3 (0.7-4.5); Lymphocytes % 15.4 % (10-50); Mean Corpuscular HGB Conc 31.9 g/dL (31.8-35.4); Mean Corpuscular Hemoglobin 28.2 pg (27.0-31.2); Mean Corpuscular Volume 88.5 fl (81-99); Mean Platelet Volume 7.3 fl (7.4-10.4); Monocytes # 0.4 K/mm3 (0.1-1.0); Neutrophils # 5.6 K/mm3 (1.8-7.8); Neutrophils % 76.7 % (37.0-80.0); Platelet Count 191 K/mm3 (142-424); Red Blood Count 4.95 M/mm3 (4.20-5.40); Red Cell Distribution Width 15.3 % (11.5-17.5); White Blood Count 7.4 K/mm3 (4.8-10.8)
[2019-07-11 11:23] LABS: Anion Gap 16.4 mEq/L (5-15); Blood Urea Nitrogen 13 mg/dL (7-18); Calcium 8.8 mg/dL (8.5-10.1); Carbon Dioxide 26 mmol/L (21.0-32.0); Chloride 106 mmol/L (98-107); Creatinine,Serum 0.55 mg/dL (0.55-1.02); Estimated Glomerular Filt Rate 112 ml/min (>60); GFR (African American) 136 ML/MIN (>60); Glucose 173 mg/dL (74-106); Potassium 4.4 mmoL/L (3.5-5.1); Sodium 144 mmol/L (136-145)
== END ==
PROVIDERS: Visit Provider Internal Medicine
DX: R06.02 Shortness of breath (principal); I25.10 Atherosclerotic heart disease of native coronary artery without angina pectoris
CPT/HCPCS: 36415; 80048; 85025

== ENCOUNTER → 2019-07-19 15:39 | Outpatient (CLI) | payer MEDICAID, SELFPAY ==
--- NOTE | 2019-07-19 15:41 | CA_ITS ---
APPROVED REPORT Laterality: Right Upper Extremity Information Engineer: NATAN HornerT Indications PT HAD HEART CATH ON 07/04 WITH RIGHT RADIAL ACCESS. PT NOTICED A KNOT IN AREA OF SITE TODAY. Findings No evidence of psuedoaneurysm or AV fistula seen right wrist. Conclusion No evidence of psuedoaneurysm or AV fistula seen right wrist. Electronically signed by : Misael Webster MD 07/19/2019 17:26:57
== END ==
PROVIDERS: PCP Nurse Practitioner Family; Visit Provider Urology
DX: M25.531 Pain in right wrist (principal); Z98.61 Coronary angioplasty status
CPT/HCPCS: 93931

== ENCOUNTER 2019-07-27 12:52 | Outpatient (RCR) | payer MEDICAID, OTHER, SELFPAY | END 2019-10-16 13:27 | disposition home or self-care (01) | LOC: PT 12:52 | PROVIDERS: Visit Provider Internal Medicine | DX: I25.10 Atherosclerotic heart disease of native coronary artery without angina pectoris (principal); Z95.5 Presence of coronary angioplasty implant and graft | CPT/HCPCS: 93798 ==

== ENCOUNTER → 2019-08-15 12:25 | Outpatient (CLI) | payer MEDICAID, SELFPAY ==
--- NOTE | 2019-08-15 12:26 | CA_ITS ---
APPROVED REPORT EXAM: Comprehensive 2D, Doppler, and color-flow Echocardiogram Receiving Operator: Benita Westbrook RDCS Ht: 5 ft 3 in Wt: 219lbs BSA: 2.01 BP: 125/60 mmHg Indications: Abnormal ECG, Chest Pain, Murmur, Shortness of Breath, Diabetes, Obesity, Fatigue, CAD, Hypertension/HDD, lung mass 2D Dimensions LVOT 1.90 cm (M/F) 1.5-2.5 M-Mode Dimensions RVDd 2.60 cm (0.9-2.6) LA Diam 3.30 cm (1.9-4.0) LVDd 4.30 cm (3.5-5.7) Ao Diam 3.30 cm (2.0-3.7) LVDs 2.60 cm (3.5-5.7) AV Cusp 1.50 cm (1.5-2.6) IVSd 1.30 cm (0.6-1.1) PWd 1.30 cm (0.6-1.1) EF (Teich) 70.40% FS 39.50% EDV (Teich) 83.10 mL ESV (Teich) 24.60 mL LV Diastology E/A Ratio 0.6 MED E' 6.34 (< 7 cm/sec) E'/MED E' Ratio 8.40 (>14) LAT E' 9.85 (<10 cm/sec) E/LAT E' Ratio 5.40 (>14) Aortic Valve LVOT Max 175.00 (70-110 cm/s) LVOT VTI 31.10 cm AoV Peak Fernando. 233.00 (50-130 cm/s) AO Peak GR. 22.00 mmHg AO Mean GR. 14.00 (<5 mmHg) AO VTI 49.10 (18-25 cm) OMID (VTI) 1.80 (2.5-4.5 cm2) Mitral Valve MV E Max Fernando. 53.30 (40-130 cm/s) MV A Velocity 82.90 (40-130 cm/s) E/A Ratio 0.60 Left Ventricle Left atrium is mildly enlarged, left ventricle is normal size, mild concentric left ventricular hypertrophy, visually estimated ejection fraction of 55% with no regional wall motion abnormality, grade 1 diastolic dysfunction seen without tissue Doppler evidence of raise left atrial pressure. Right Ventricle Right atrium and right ventricular normal size and contractility. Aortic Valve Aortic valve is thickened and calcified leaflet continue to display mobility. The mean gradient across valve is 13 mmHg, represents mild aortic stenosis, there is no significant aortic insufficiency seen. Mitral Valve Mitral valve is grossly normal, there is mild mitral regurgitation. Tricuspid Valve Tricuspid valve is grossly normal, there is mild tricuspid regurgitation noted, tricuspid regurgitation jet velocity is inadequate for calculation of the right ventricular systolic pressure. Pulmonic Valve Pulmonic valve is poorly visualized. Great Vessels Aortic root is normal size. Pericardium No significant pericardial effusion noted. Conclusion 1. Mildly enlarged left atrium, normal left ventricular size, mild concentric left ventricular hypertrophy, visually estimated ejection fraction 55% with no regional wall motion abnormality, grade 1 diastolic dysfunction seen without tissue Doppler evidence of raise left atrial pressure. 2. Thickened and calcified aortic valve, mean gradient across valve is 13 mmHg represents mild aortic stenosis, there is no significant aortic insufficiency seen. 3. Mild mitral and tricuspid regurgitation 4. No significant pericardial effusion noted. Electronically signed by : Salvatore Lozada, 08/16/2019 06:05:00
== END ==
PROVIDERS: PCP Nurse Practitioner Family; Visit Provider Physician Assistant
DX: R01.1 Cardiac murmur, unspecified (principal); E78.5 Hyperlipidemia, unspecified; I10 Essential (primary) hypertension; I25.10 Atherosclerotic heart disease of native coronary artery without angina pectoris
CPT/HCPCS: 93306

== ENCOUNTER → 2019-09-06 16:22 | Outpatient (CLI) | payer OTHER, SELFPAY ==
--- NOTE | 2019-09-06 16:41 | XR_ITS ---
PROCEDURE: XR CHEST 2V CLINICAL HISTORY: SOB, HTN, D.M. The COMPARISON: CXR CHEST(2 VIEWS-NOT PORTABLE) from 01/13/2016 CXR1 CHEST-PORTABLE from 03/05/2016 FINDINGS: The cardiomediastinal silhouette and pulmonary vascularity are within normal limits. The lungs are clear without infiltrates, suspicious nodules, or pleural effusions. Bone plate is present over the lower cervical spine IMPRESSION: No acute findings. Dictated by: Misael Webster MD 09/06/2019 17:41 Electronically signed by Misael Webster MD in [place] 09/06/2019 17:41
[2019-09-06 16:44] LABS: Basophils % 0.3 % (0.1-2.0); Eosinophils # 0.2 K/mm3 (0.0-0.4); Hematocrit 41.7 % (37.0-47.0); Hemoglobin 12.5 g/dL (12.2-16.2); Lymphocytes # 1.2 K/mm3 (0.7-4.5); Lymphocytes % 19.8 % (10-50); Mean Corpuscular HGB Conc 29.9 g/dL (31.8-35.4); Mean Corpuscular Hemoglobin 27.7 pg (27.0-31.2); Mean Corpuscular Volume 92.4 fl (81-99); Mean Platelet Volume 7.8 fl (7.4-10.4); Monocytes # 0.3 K/mm3 (0.1-1.0); Monocytes % 4.7 % (1.7-9.3); Neutrophils # 4.3 K/mm3 (1.8-7.8); Neutrophils % 72.3 % (37.0-80.0); Platelet Count 185 K/mm3 (142-424); Red Blood Count 4.51 M/mm3 (4.20-5.40); Red Cell Distribution Width 16.5 % (11.5-17.5)
[2019-09-06 17:00] LABS: Alanine Aminotransferase 31 U/L (12-78); Albumin Level 3.6 gm/dL (3.4-5.0); Albumin/Globulin Ratio 1.1 (1.1-1.8); Alkaline Phosphatase 109 U/L (46-116); Anion Gap 12.9 mEq/L (5-15); Aspartate Amino Transferase 23 U/L (15-37); Bilirubin,Total 0.4 mg/dL (0.2-1.0); Blood Urea Nitrogen 13 mg/dL (7-18); Calcium 8.7 mg/dL (8.5-10.1); Carbon Dioxide 27 mmol/L (21.0-32.0); Chloride 105 mmol/L (98-107); Creatinine,Serum 0.56 mg/dL (0.55-1.02); Estimated Glomerular Filt Rate 110 ml/min (>60); GFR (African American) 133 ML/MIN (>60); Globulin 3.4 gm/dl (1.3-3.2); Glucose 186 mg/dL (74-106); Potassium 3.9 mmoL/L (3.5-5.1); Sodium 141 mmol/L (136-145); Troponin I < 0.02 ng/ml (0.00-0.06)
[2019-09-06 17:31] LABS: Hemoglobin A1C 8.9 % (0.0-7.0)
== END ==
PROVIDERS: Visit Provider Nurse Practitioner
DX: R06.02 Shortness of breath (principal); I10 Essential (primary) hypertension; E11.9 Type 2 diabetes mellitus without complications; Z79.84 Long term (current) use of oral hypoglycemic drugs
CPT/HCPCS: 36415; 71046; 80053; 83036; 83880; 84484; 85025

== ENCOUNTER → 2019-10-27 15:13 | Outpatient (CLI) | payer OTHER, SELFPAY ==
--- NOTE | 2019-10-27 15:17 | MM_ITS ---
PROCEDURE: MM DIG SCREENING MAMM BI W/CAD CLINICAL INDICATION: SCREENING There is no personal or family history of breast cancer. There has been a previous biopsy left breast for benign disease. The patient complains of some soreness left breast for the past 2 weeks. COMPARISON: DMSB DIG MAMM-SCREEN SCOTTIE from 11/09/2014 DMSB DIG MAMM-SCREEN SCOTTIE from 12/23/2015 DMSB DIG MAMM-SCREEN SCOTTIE W/CAD from 12/30/2016 TECHNIQUE: Standard CC and MLO images were obtained. R2 CAD reviewed. FINDINGS: Minimal fibroglandular densities are seen in both breasts on a background of fatty breast parenchyma. There are few benign-appearing calcifications in each breast and there is a biopsy clip left breast. There is a stable small benign-appearing nodular density deep within the right breast. There is a tiny benign-appearing nodular density outer quadrant left breast. There is minimal post biopsy scarring near the biopsy clip left breast. There is no new or suspicious lesion in either breast and no suspicious microcalcifications.. There are fatty replaced nodes in both axilla. IMPRESSION: Fibrofatty parenchyma with no suspicious lesions seen BI-RAD Category: 2 Benign Finding(s) FOLLOW-UP: 1YR 1 Year Follow-up (A letter has been sent to the patient regarding results of the study.) Dictated by: Dr. Corwin Dyer MD 10/31/2019 15:[address] Corwin Deyr MD in [place] 10/31/2019 15:22
== END ==
PROVIDERS: PCP Nurse Practitioner Family; Visit Provider Nurse Practitioner Family
DX: Z12.31 Encounter for screening mammogram for malignant neoplasm of breast (principal)
CPT/HCPCS: 77067

== ENCOUNTER → 2019-12-07 13:27 | Outpatient (CLI) | payer OTHER, SELFPAY ==
--- NOTE | 2019-12-07 13:35 | US_ITS ---
PROCEDURE: US BREAST LT COMPLETE CLINICAL INDICATION: LT BREAST LUMP Left outer breast pain COMPARISON: MM DIG SCREENING MAMM BI W/CAD from 10/27/2019 FINDINGS: No cystic or solid nodules evident. No suspicious lesions identified. IMPRESSION: BI-RADS category 1-. Recommend follow-up in 1 year. A negative ultrasound a negative mammogram does not exclude the possibility of a breast lesion. If there is indeed a palpable nodule then further evaluation is recommended Dictated by: Misael Webster MD 12/08/2019 14:43 Electronically signed by Misael Webster MD in [place] 12/08/2019 14:43
== END ==
PROVIDERS: PCP Nurse Practitioner Family; Visit Provider Nurse Practitioner Family
DX: N63.21 Unspecified lump in the left breast, upper outer quadrant (principal)
CPT/HCPCS: 76641

== ENCOUNTER → 2020-04-29 08:02 | Outpatient (CLI) | payer OTHER, SELFPAY ==
[2020-04-29 15:26] LABS: Coronavirus 19 IgG Antibody Negative (Negative); Coronavirus 19 IgM Antibody Negative (Negative)
== END ==
PROVIDERS: Visit Provider Ophthalmology
DX: Z01.818 Encounter for other preprocedural examination (principal)
CPT/HCPCS: 36415; 86328

== ENCOUNTER 2020-04-30 08:12 | Day surgery (SDC) | payer OTHER, SELFPAY ==
--- NOTE | 2020-04-26 10:06 | SUR.PREOP ---
04/26/2020 @ 1000--PHONE CALL MADE TO PATIENT. PATIENT UNDERSTANDS THAT LAB WORK AND COVID TESTING NEEDS TO BE COMPLETED @ 0800 ON 04/29/2020. PATIENT UNDERSTANDS IF LAB WORK AND COVID-19 TESTS ARE NOT COMPLETED BY 12PM ON THAT DATE, THE SURGERY SCHEDULED WILL BE CANCELLED AND RESCHEDULED FOR ANOTHER TIME.
[2020-04-30 09:04] VITALS: BP 103/49; PULSE 70; RESP 18; TEMP 536.9; TEMP 998.4; O2SAT 98; BMI 38.2
[2020-04-30 10:11] VITALS: BP 115/62; PULSE 77; RESP 18; TEMP 36.8; O2SAT 100
--- NOTE | 2020-04-30 13:48 | XR_ITS ---
PROCEDURE: XR CERVICAL SPINE 5V CLINICAL INDICATION: CERVICALGIA COMPARISON: [id number] XR cervical spine 5V from 11/07/2018 FINDINGS: Normal alignment. Prior anterior cervical disc fusion with an anterior bone plate at C5-C6 and C7 with disc spacers. The disc space at C5-C6 is somewhat prominent. Anterior bridging osteophytes are present at C3-C4 and C5. No acute fracture or dislocation. There is mild foraminal narrowing on the left C5-C6 and C6-C7. IMPRESSION: Postsurgical changes with anterior fusion at C5-C6 and C7 with degenerative changes and mild left foraminal narrowing at C 5 C6 and C6-C7 Dictated by: Misael Webster MD 04/30/2020 14:52 Electronically signed by Misael Webster MD in [place] 04/30/2020 14:52
[2020-04-30 14:29] LABS: POC Glucose,Bedside 206 (70-110)
== END 2020-04-30 10:15 | disposition home or self-care (01) ==
PROVIDERS: PCP Nurse Practitioner Family; Visit Provider Ophthalmology
PROC: (CPT 66821; principal; 2020-04-30 09:00)
DX: H26.493 Other secondary cataract, bilateral (principal); Z96.1 Presence of intraocular lens; H53.8 Other visual disturbances; Z79.82 Long term (current) use of aspirin; Z79.84 Long term (current) use of oral hypoglycemic drugs; Z79.899 Other long term (current) drug therapy; K21.9 Gastro-esophageal reflux disease without esophagitis
CPT/HCPCS: 66821; 72050; 82962

== ENCOUNTER → 2020-05-13 13:09 | Outpatient (CLI) | payer OTHER, SELFPAY ==
--- NOTE | 2020-05-13 13:15 | MR_ITS ---
PROCEDURE: MR CERVICAL SPINE WO CON CLINICAL INDICATION: CERVICAL DISC DISEASE, CERVICALGIA COMPARISON: [id number] XR cervical spine 5V from 11/07/2018 SPCERVWO MR cervical spine wo con from 12/01/2018 XR CERVICAL SPINE 5V from 04/30/2020 TECHNIQUE: Standard multiplanar multiecho sequences are performed without contrast. 3-D MIP and myelographic images are also rendered and reviewed FINDINGS: The patient is status post C5-C7 ACDF and inter disc fusion. Prominent anterior osteophytosis and ankylosis at the level of C3-C4 and C4-C5 is again demonstrated. Joint bases are intact. The spinal cord, midbrain and the cerebellar tonsils are unremarkable. At the C2-3 disc space there is no significant spinal stenosis. There is a mild broad-based bulging disc. At the C3-C4 disc space there is a broad-based bulging disc and mild overgrowth of the right uncovertebral joint without significant spinal stenosis. At the C4-C5 disc space there is a mild broad-based disc protrusion without significant spinal stenosis. At the C5-6 disc space there is a broad-based disc protrusion producing mild central canal and mild bilateral neural foraminal stenosis. At the C6-7 disc space there is a stable broad-based disc protrusion and superimposed degenerate overgrowth of the left uncovertebral joint producing mild central canal, moderate left lateral recess, and moderate left neural foraminal stenosis. At the C7-T1 disc space there is no significant spinal stenosis. The paracervical structures are unremarkable. IMPRESSION: Status post C5 - C7 ACDF, DISH, stable C6-7 spinal stenosis Dictated by: Torsten Salinas 05/13/2020 17:33 Electronically signed by Torsten Salinas in [place] 05/13/2020 17:33
== END ==
PROVIDERS: PCP Nurse Practitioner Family; Visit Provider Nurse Practitioner
DX: M54.2 Cervicalgia (principal); M54.12 Radiculopathy, cervical region; M50.90 Cervical disc disorder, unspecified, unspecified cervical region; Z98.890 Other specified postprocedural states
CPT/HCPCS: 72141; 76376

== ENCOUNTER → 2020-07-08 11:02 | Outpatient (CLI) | payer OTHER, SELFPAY ==
--- NOTE | 2020-07-08 | XR_ITS ---
PROCEDURE: XR LUMBAR SPINE MIN 4V CLINICAL INDICATION: LUMBAGO W/ SCIATICA L AND R SIDE COMPARISON: CR [id number] XR lumbar spine min 4V from 11/07/2018 FINDINGS: Normal alignment. No fracture or dislocation. No lytic or blastic change. There are small anterior osteophytes at L3-L4 and with mild degenerative disc disease at L3-L4 and mild facet arthritic changes L5-S1. Other findings:None. IMPRESSION: Mild degenerative changes, no acute finding Dictated by: Misael Webster MD 07/08/2020 11:49 Misael Webster MD in [place] 07/08/2020 11:49
--- NOTE | 2020-07-08 | XR_ITS ---
PROCEDURE: XR SHOULDER LT MIN 2V CLINICAL INDICATION: PAIN IN L SHOULDER, L UPPER EXTREMITY NUMBNESS COMPARISON: CR SHOULDCMLT XR shoulder LT min 2V from 11/07/2018 FINDINGS: No fracture or dislocation. No lytic or blastic change. There is normal mineralization. There are mild osteoarthritic changes at the glenohumeral joint. The AC joint has an unremarkable appearance. There is a bone plate present over lower cervical spine. Other findings:There is persistent hypertrophic change along the inferior aspect of the a chromium with subacromial stenosis. IMPRESSION: Mild osteoarthritis with subacromial stenosis not significantly changed. Dictated by: Misael Webster MD 07/08/2020 12:05 Misael Webster MD in [place] 07/08/2020 12:05
== END ==
PROVIDERS: PCP Family Medicine; Visit Provider Nurse Practitioner Family
DX: M25.512 Pain in left shoulder (principal); M54.42 Lumbago with sciatica, left side; M54.41 Lumbago with sciatica, right side; R20.0 Anesthesia of skin
CPT/HCPCS: 72110; 73030

== ENCOUNTER → 2020-07-22 16:08 | Outpatient (CLI) | payer OTHER, SELFPAY ==
--- NOTE | 2020-07-22 | XR_ITS ---
PROCEDURE: XR FOOT LT MIN 3V CLINICAL INDICATION: Pain, injury with pain COMPARISON: No exams were available for comparison FINDINGS: No fracture or dislocation. No lytic or blastic change. There is normal mineralization. Mild osteoarthritic changes are present at the 1st metatarsal tarsal junction dorsally. There is a bone plate overlying the distal fibula. There are mild degenerative changes of the midfoot. Mild bony hypertrophy present at the Achilles insertion with a small calcaneal spur also noted. Other findings:None. IMPRESSION: No acute findings. Dictated by: Misael Webster MD 07/22/2020 17:36 Misael Webster MD in [place] 07/22/2020 17:36
== END ==
PROVIDERS: PCP Nurse Practitioner Family; Visit Provider Nurse Practitioner Family
DX: S99.922A Unspecified injury of left foot, initial encounter (principal)
CPT/HCPCS: 73630

== ENCOUNTER → 2020-08-09 12:53 | Outpatient (CLI) | payer OTHER, SELFPAY ==
--- NOTE | 2020-08-09 | MR_ITS ---
PROCEDURE: MR LUMBAR SPINE WO CON CLINICAL INDICATION: LUMBAGO PT C/O LBP WITH NO KNOWN TRAUMA OR INJURY. PT STATES HER BACK JUST GIVES OUT. PRIOR L-SPINE XRAY 07/08/20 COMPARISON: CR XR LUMBAR SPINE MIN 4V from 07/08/2020 TECHNIQUE: Standard multiplanar multiecho sequences are performed without contrast. 3-D MIP and myelographic images are also rendered and reviewed FINDINGS: Normal alignment. The spinal cord ends at the L1-L2 level. L1-L2: Unremarkable. L2-L3: Unremarkable. L3-L4: Minimal bulging disc with minimal facet and ligamentum hypertrophy. L4-5: Facet and ligamentum hypertrophy with lateral recess and foraminal narrowing. The lateral recess narrowing is greater on the right causing some impingement upon the thecal sac on the right. L5-S1: Mild facet hypertrophic change. IMPRESSION: Mild lumbar spondylosis as detailed above. No extruded herniated disc or canal stenosis. Dictated by: Misael Webster MD 08/10/2020 12:11 Misael Webster MD in [place] 08/10/2020 12:11
--- NOTE | 2020-08-09 | MR_ITS ---
PROCEDURE: MR SHOULDER LT WO CON CLINICAL INDICATION: LEFT SHOULDER PAIN PT C/O LEFT SIDED NEK AND SHOULDER PAIN WITH NO KNOWN INJURY. PT STATES LIMITED RANGE OF MOTION AND CANT RAISE HER ARM WELL. PRIOR LEFT SHOULDER XARY 07/08/20 COMPARISON: CR SHOULDCMLT XR shoulder LT min 2V from 11/07/2018 CR XR SHOULDER LT MIN 2V from 07/08/2020 TECHNIQUE: Routine multiplanar multi echo sequences are performed without and with gadolinium enhancement. FINDINGS: There are mild osteoarthritic changes with hypertrophy of the acromioclavicular joint with subacromial stenosis. There is some mild impingement upon the supraspinatus tendon anteriorly at the AC joint with slight increase in T2 signal intensity of the supraspinatus distally consistent with tendinopathy/tendinosis. No definite tear is evident. The infraspinatus tendon has an unremarkable appearance. Subscapularis and teres minor tendons also appear unremarkable. There is cortical defect within the anterior medial aspect of the humeral head which may be due to a Hill-Sachs injury. No bone marrow edema is evident at this area. Therefore this, this may be chronic. The bicipital tendon is in place. No obvious labral tear. There are mild osteoarthritic changes of the glenohumeral joint IMPRESSION: 1. Mild osteoarthritic change of the acromioclavicular joint and glenohumeral joint with mild impingement upon the supraspinatus tendon with mild tendinopathy/tendinosis. 2. No evidence of rotator cuff tear. 3. Defect within the anterior medial aspect the humeral head which may represent an old Hill-Sachs injury. Dictated by: Misael Webster MD 08/13/2020 10:11 Misael Webster MD in [place] 08/13/2020 10:11
== END ==
PROVIDERS: PCP Nurse Practitioner Family; Visit Provider Nurse Practitioner Family
DX: M25.512 Pain in left shoulder (principal); R20.0 Anesthesia of skin; M54.42 Lumbago with sciatica, left side; M54.41 Lumbago with sciatica, right side
CPT/HCPCS: 72148; 73221; 76376

== ENCOUNTER → 2020-10-21 10:23 | Outpatient (CLI) | payer OTHER, SELFPAY ==
[2020-10-22 14:22] LABS: Covid-19 Nasal PCR Sendout Lex POSITIVE
== END ==
PROVIDERS: PCP Nurse Practitioner Family; Visit Provider Nurse Practitioner Family
DX: Z20.828 Contact with and (suspected) exposure to other viral communicable diseases (principal); U07.1 COVID-19
CPT/HCPCS: U0004

== ENCOUNTER → 2021-01-28 08:25 | Outpatient (CLI) | payer OTHER, SELFPAY ==
--- NOTE | 2021-01-28 08:29 | MM_ITS ---
PROCEDURE: MM DIG SCREENING MAMM BI W/CAD Digital Breast Tomosynthesis Included CLINICAL INDICATION: SCREENING There is no personal or family history of breast cancer. There has been a previous biopsy left breast for benign disease. COMPARISON: MG DMSB DIG MAMM-SCREEN SCOTTIE from 12/23/2015 MG DMSB DIG MAMM-SCREEN SCOTTIE W/CAD from 12/30/2016 MG MM DIG SCREENING MAMM BI W/CAD from 10/27/2019 TECHNIQUE: Standard CC and MLO images and 3D Tomosynthesis was obtained. R2 CAD reviewed. FINDINGS: Scattered fibroglandular densities are seen throughout both breasts. There are few scattered benign-appearing microcalcifications in each breast, there is a biopsy clip upper outer quadrant left breast. There is stable minimal post biopsy scarring adjacent to the biopsy clip. There is a stable benign-appearing nodular density near the axillary tail right breast likely a low-lying or intramammary node. There is no new or suspicious lesion in either breast and no suspicious microcalcifications. There are fatty replaced nodes in both axilla. IMPRESSION: Fibrofatty parenchyma with no suspicious lesions seen BI-RAD Category: 2 Benign Finding(s) FOLLOW-UP: 1YR 1 Year Follow-up (A letter has been sent to the patient regarding results of the study.) Dictated by: Dr. Corwin Dyer MD 02/02/2021 10:50 Dr. Corwin Dyer MD in [place] 02/02/2021 10:50
== END ==
PROVIDERS: PCP Nurse Practitioner Family; Visit Provider Nurse Practitioner Family
DX: Z12.31 Encounter for screening mammogram for malignant neoplasm of breast (principal)
CPT/HCPCS: 77063; 77067

== ENCOUNTER → 2021-01-31 11:05 | Outpatient (CLI) | payer OTHER, SELFPAY | PROVIDERS: PCP Nurse Practitioner Family; Visit Provider Urology | DX: R00.2 Palpitations (principal) | CPT/HCPCS: 93270 ==

== ENCOUNTER 2021-02-10 09:00 | Outpatient (RCR) | payer OTHER, SELFPAY | END 2021-02-10 09:05 | disposition home or self-care (01) | LOC: PT 09:00 | PROVIDERS: PCP Nurse Practitioner Family; Visit Provider Physician Assistant | DX: M54.5 Low back pain (principal); M51.36 Other intervertebral disc degeneration, lumbar region | CPT/HCPCS: 97010; 97014; 97035; 97110; 97163; 97164; G0283 ==

== ENCOUNTER → 2021-02-14 07:16 | Outpatient (CLI) | payer OTHER, SELFPAY ==
--- NOTE | 2021-02-14 | CA_ITS ---
APPROVED REPORT Exam: Pharmacologic Technologist: Nori Grigsby, Ht: 5 ft 3 in Wt: 210 lbs BSA: 1.97 m2 HR: 73 bpm BP: 119/53 mmHg Rhythm: NSR Indications: Chest pain Stress Test Details Test: LEXISCAN HR Resting HR: 74 bpm Max Heart Rate (APMHR): 157.397320 bpm Max HR Achieved: 96 bpm Target HR (85% APMHR): 133.823239 bpm % of APMHR: 61.15 Recovery HR: 83 bpm BP Resting BP: 119/53 mmHg Max BP: 119/53 mmHg Recovery BP: 114.0/49.0 mmHg ECG Clinical Reason for Termination: Completed protocol Exercise duration: 04:00 min Highest Stage Achieved: Stress ECG Conclusion No chest pain - reports SOA and peak infusion - resolved in recovery. No ectopy noted. Less than 1.5mm ST depression. images to follow. Test Summary REST . . . . . . . Resting REST 04:07 . . 74 . 119/ 53 . . Stage 1 . . . . . . . Myoview Injected Stage 1 01:00 . . 89 . . . . Stage 2 01:00 . . 95 . 109/ 48 . . Stage 3 01:00 . . 89 . 111/ 45 . . Stage 4 01:00 . . 88 . 103/ 46 . Stop exercise at 04:00 RECOVERY 01:00 . . 84 . 107/ 45 . . RECOVERY 02:00 . . 87 . 107/ 45 . . RECOVERY 03:00 . . 81 . 107/ 45 . . RECOVERY 04:00 . . 84 . 114/ 49 . . RECOVERY 04:01 . . 84 . 114/ 49 . . Electronically signed by : Salvatore Lozada, 02/14/2021 12:32:21
--- NOTE | 2021-02-14 07:17 | NM_ITS ---
APPROVED REPORT Exam: Nuclear Stress Test Indication: CAD, 2 STENTS, HTN, DM, FM HX, C.P., SOB, FATIGUE Patient Location: Outpatient Stress Tech: Nori Grigsby AR Tech:Dilcia Baptiste, WESLEYT RT(R)(N) Ht: 5 ft 3 in Wt: 210 lbs Bra Size: 46DD HR: 73 bpm BP: 119/53 mmHg BSA: 1.97 m2 BMI: 37.1 History: CAD, 2 STENTS, HTN, DM, FM HX, C.P., SOB, FATIGUE Procedure: Patient received a 0.4 mg of intravenous Lexiscan, resting heart rate 73 bpm, resting blood pressure 119/53 mmHg, with Lexiscan maximum heart rate achived was 96 bpm which is Less than 85 % of the maximum predicted heart rate and blood pressure was 109/48 mmHg. With Lexiscan, patient denied any complaint of chest pain. Electrocardiogram Resting electrocardiogram showed sinus rhythm, with Lexiscan there is less than 1.[address] segment depression noted from the baseline EKG. The EKG portion of the Lexiscan is nondiagnostic. Cardiac Stress and Resting SPECT Images: Cardiac Stress and Resting SPECT images were obtained using technetium 99m Myoview 30.4 mCi stress and 9.94 mCi at rest. Gated SPECT for analysis of segmental wall motion and calculation of the ejection fraction also done. Prone images were also obtained. Cardiac stress and resting SPECT images show uniform myocardial activity without segmental perfusion abnormality, computer derived ejection fraction is 65% with no regional wall motion abnormality, right ventricle is normal size and contractility, there is transient ischemic dilatation of the left ventricle seen, raising the concerns for presence of multivessel coronary artery disease or balanced ischemia. Conclusion: 1. The EKG portion of the Lexiscan is nondiagnostic. 2. No scintigraphic evidence of reversible ischemia seen, computer derived ejection fraction is 65% with no regional wall motion abnormality, right ventricle is normal size and contractility. There is transient ischemic dilatation of the left ventricle seen, raising the concerns for presence of multivessel coronary artery disease of balanced ischemia. 3. Abnormal Lexiscan Myoview study. Electronically signed by : Salvatore Lozada, 02/14/2021 12:31:41
--- NOTE | 2021-02-14 08:11 | CA_ITS ---
APPROVED REPORT Well Flow Operator: Angelica Landon RVT Laterality: Bilateral Study Quality: Good Indications: left briut,dizziness Risk Factors Hypertension: Hyperlipidemia Doppler Spectral Velocity Analysis ECA (R) 83.30/12.80 cm/s ECA (L) 319.80/48.20 cm/s dICA (R) 240.80/75.10 cm/s dICA (L) 109.80/27.00 cm/s Joce (R) 231.20/80.90 cm/s Joce (L) 188.80/34.70 cm/s pICA (R) 306.30/102.10 cm/s pICA (L) 310.10/88.60 cm/s dCCA (R) 81.30/17.10 cm/s dCCA (L) 115.30/23.10 cm/s pCCA (R) 92.00/18.20 cm/s pCCA (L) 85.80/15.40 cm/s Vert (R) 37.20/16.70 cm/s Vert (L) 65.50/11.60 cm/s ICA/CCA 3.77 ICA/CCA 2.69 Findings Study suggests 70-99% stenosis of the right internal cartoid artery. Study suggests 50-69% (upper end of scale) left internal cartoid artery. Antegrade flow seen bilateral vertebral arteries. Conclusion Study suggests 70-99% stenosis of the right internal cartoid artery. Study suggests 50-69% (upper end of scale) left internal cartoid artery. Antegrade flow seen bilateral vertebral arteries. Critical Notification Critical Value: Yes Physician Notified Date: 02/14/2021 Time: 08:51 Physician Name: Belgica Vázquez Electronically signed by : Misael Webster MD 02/14/2021 16:23:49
== END ==
PROVIDERS: PCP Nurse Practitioner Family; Visit Provider Urology
DX: R07.89 Other chest pain (principal); R09.89 Other specified symptoms and signs involving the circulatory and respiratory systems; E11.42 Type 2 diabetes mellitus with diabetic polyneuropathy; Z79.84 Long term (current) use of oral hypoglycemic drugs
CPT/HCPCS: 78452; 93017; 93880; A9502; J2785

== ENCOUNTER → 2021-02-25 15:08 | Outpatient (CLI) | payer OTHER, SELFPAY ==
[2021-02-25 15:39] LABS: Basophils % 0.4 % (0.1-2.0); Eosinophils # 0.2 K/mm3 (0.0-0.4); Eosinophils % 1.9 % (0.1-12.0); Hematocrit 47.1 % (37.0-47.0); Lymphocytes # 1.6 K/mm3 (0.7-4.5); Lymphocytes % 19.2 % (10-50); Mean Corpuscular HGB Conc 31.8 g/dL (31.8-35.4); Mean Corpuscular Hemoglobin 29.3 pg (27.0-31.2); Mean Corpuscular Volume 92.2 fl (81-99); Mean Platelet Volume 7.7 fl (7.4-10.4); Monocytes # 0.5 K/mm3 (0.1-1.0); Neutrophils # 6.2 K/mm3 (1.8-7.8); Neutrophils % 72.5 % (37.0-80.0); Platelet Count 222 K/mm3 (142-424); Red Blood Count 5.11 M/mm3 (4.20-5.40); Red Cell Distribution Width 15.9 % (11.5-17.5); White Blood Count 8.5 K/mm3 (4.8-10.8)
[2021-02-25 16:49] LABS: Anion Gap 17.9 mEq/L (5-15); Blood Urea Nitrogen 19 mg/dl (7-17); Carbon Dioxide 28 mmol/L (22.0-30.0); Chloride 99 mmol/L (98-107); Estimated Glomerular Filt Rate 63 ml/min (>60); GFR (African American) 77 ML/MIN (>60); Glucose 219 mg/dl (74-100); Potassium 4.9 mmoL/L (3.5-5.1); Sodium 140 mmol/L (136-145)
== END ==
PROVIDERS: Visit Provider Internal Medicine
DX: E11.9 Type 2 diabetes mellitus without complications (principal); I10 Essential (primary) hypertension; E78.5 Hyperlipidemia, unspecified; Z20.822 Contact with and (suspected) exposure to COVID-19; I25.10 Atherosclerotic heart disease of native coronary artery without angina pectoris; I51.89 Other ill-defined heart diseases; I65.23 Occlusion and stenosis of bilateral carotid arteries
CPT/HCPCS: 36415; 80048; 85025; U0003

== ENCOUNTER 2021-02-26 08:52 | Day surgery (SDC) | payer OTHER, SELFPAY ==
[2021-02-26] VITALS (20 sets, daily range): BP systolic 105–146; BP diastolic 56–89; PULSE 65–82; RESP 16–20; O2SAT 90–98; BMI 37.5
--- NOTE | 2021-02-26 | IR_ITS ---
APPROVED REPORT Patient Location: Outpatient Research Analyst: NICHOLAS Sesay RT (R) PROCEDURES Left heart catheterization Left ventriculogram Selective coronary angiogram Catheter placed on the right common carotid artery Right internal carotid artery selective angiogram Right internal carotid artery intracerebral angiogram Catheter placed in the left common carotid artery Left internal carotid artery selective angiogram Left internal carotid artery intracerebral angiogram Catheter placed in left vertebral artery with left vertebral artery selective angiogram Catheter placement on the right vertebral artery with right vertebral artery selective angiogram INDICATION Abnormal Myoview, Bilateral carotid artery stenosis, Abnormal carotid noninvasive, Informed consent was obtained prior to the procedure. COMPLICATIONS None Estimated Blood Loss: Less than 10 mls TECHNIQUE One percent lidocaine was used to anesthetize the right groin. The right femoral artery was accessed via the Seldinger technique. A 4-Ghanaian sheath was placed in the right femoral artery. The JL-4 and JR-4 catheter was also used to perform left heart catheterization left ventriculogram and selective coronary angiogram. A JR4 catheter was used to perform four-vessel cerebral angiography with selective engagement. At the end of the procedure the apparatus is removed the sheath was removed good hemostasis was achieved using manual pressure patient was transferred to the postop holding in stable condition ANGIOGRAPHIC RESULTS The left main artery Normal The left anterior descending artery Has proximal concentric 20% smooth stenosis with remaining vessel normal The circumflex artery Nondominant normal The right coronary artery Is a dominant vessel and has proximal 20% stenosis followed by a mid vessel stent which is widely patent with mild in-stent restenosis. Distally there are mild 10 to 20% stenoses The AUGUSTINE ventriculogram reveals Preserved 55% The left ventricular end-diastolic pressure 15 mmHg The right vertebral artery is widely patent and supplies the basilar artery Left vertebral artery is widely patent and supplies the basilar artery Left common carotid artery is widely patent. The left internal carotid artery has an ostial 80% smooth stenosis there are no intracerebral stenoses or aneurysmal dilatations Right common carotid artery is widely patent. The right internal carotid artery has a smooth proximal 60 to 70% stenosis. There are no intracerebral stenoses or aneurysmal dilatations IMPRESSION Coronary disease as described above Carotid artery disease as described above PLAN 1. At this point I recommend medical management providing patient remains asymptomatic for both coronary and carotid disease 2. Goal LDL less than 55 3. Given patient's polyvascular disease she may be a candidate for Xarelto 2.5 twice daily plus aspirin 81 mg daily providing she is not on higher doses of anticoagulation for atrial fibrillation etc. 4. Risk factor modification 5. Should patient develop symptoms of carotid stenoses I would then recommend relevant carotid endarterectomy Electronically signed by : Marco May, 02/26/2021 11:00:48
== END 2021-02-26 14:08 | disposition home or self-care (01) ==
LOC: CATHLAB 08:53
PROVIDERS: PCP Nurse Practitioner Family; Visit Provider Internal Medicine
DX: I25.118 Atherosclerotic heart disease of native coronary artery with other forms of angina pectoris (principal); E11.42 Type 2 diabetes mellitus with diabetic polyneuropathy; E78.5 Hyperlipidemia, unspecified; E03.9 Hypothyroidism, unspecified; Z95.5 Presence of coronary angioplasty implant and graft; I65.23 Occlusion and stenosis of bilateral carotid arteries; I11.0 Hypertensive heart disease with heart failure; I50.32 Chronic diastolic (congestive) heart failure; T82.855A Stenosis of coronary artery stent, initial encounter; Y83.1 Surgical operation with implant of artificial internal device as the cause of abnormal reaction of the patient, or of later complication, without mention of misadventure at the time of the procedure; R06.02 Shortness of breath; Z82.49 Family history of ischemic heart disease and other diseases of the circulatory system; Z79.84 Long term (current) use of oral hypoglycemic drugs; Z79.899 Other long term (current) drug therapy; Z79.82 Long term (current) use of aspirin
CPT/HCPCS: 36224; 36226; 93458; 99152; 99153; C1725; C1769; Q9967

== ENCOUNTER → 2021-03-25 10:43 | Outpatient (POV) | payer OTHER, SELFPAY | PROVIDERS: Visit Provider Otolaryngology | DX: Z00.00 Encounter for general adult medical examination without abnormal findings (principal) ==

== ENCOUNTER → 2021-12-15 12:47 | Outpatient (CLI) | payer OTHER, SELFPAY ==
--- NOTE | 2021-12-15 12:56 | MM_ITS ---
PROCEDURE INFORMATION: Exam: US Left Breast, Complete MG Left Diagnostic Breast Tomosynthesis Exam date and time: 12/15/2021 12:56 PM Age: 66 years old Clinical indication: Lateral left breast pain and thickening. Patient denies focal palpable lump. TECHNIQUE: Imaging protocol: Complete ultrasound of all four quadrants of the Left breast and the retroareolar regions, including ultrasound of the axilla when performed. Left Diagnostic tomosynthesis and 2D mammography including computer-aided detection (CAD) when performed. Unilateral or bilateral exam. COMPARISON: 1. MG MM DIG SCREENING MAMM BI W/CAD 01/28/2021 8:33 AM 2. MG MM DIG SCREENING MAMM BI W/CAD 10/27/2019 3:41 PM 3. MG DMSB DIG MAMM-SCREEN SCOTTIE W/CAD 12/30/2016 4:30 PM FINDINGS: MAMMOGRAPHY: Breast density: There are scattered areas of fibroglandular density. Mass: No suspicious masses. No definite suspicious mass in the left upper outer quadrant to correlate with the patient's clinical symptoms, marked with a skin marker. Architectural distortion: No suspicious distortion. Calcifications: No suspicious calcifications. Asymmetric density: None. Skin thickening: None. Axillary adenopathy: None. ULTRASOUND: No definite suspicious mass in the lateral left breast to correlate with the patient's clinical symptoms. IMPRESSION: No mammographic or sonographic evidence of malignancy in the left breast. No suspicious findings to correlate with the patient's clinical symptoms in the lateral left breast. Suggest close clinical follow-up with clinical breast exam if symptoms persist. Please note, biopsy of a clinically suspicious finding on physical exam should not be delayed on the basis of a negative mammogram or ultrasound report. Such findings should be managed on clinical grounds. ASSESSMENT: BI-RADS Category 1: Negative
== END ==
PROVIDERS: PCP Nurse Practitioner Family; Visit Provider Nurse Practitioner Family
DX: N64.4 Mastodynia (principal); N63.21 Unspecified lump in the left breast, upper outer quadrant
CPT/HCPCS: 76641; 77061; 77065; G0279

== ENCOUNTER → 2021-12-24 07:29 | Outpatient (CLI) | payer OTHER, SELFPAY ==
--- NOTE | 2021-12-24 07:33 | CT_ITS ---
FINAL REPORT CLINICAL HISTORY: C/O LEFT SIDED NECK PAIN FINDINGS: Axial CT images of the cervical spine were obtained without contrast. This study was performed with techniques to keep radiation doses as low as reasonably achievable (ALARA). Individualized dose reduction techniques using automated exposure control or adjustment of mA and/or kV according to the patient's size were employed. There is no evidence of fracture or dislocation. There is fusion from C5-C7. Moderate and severe diffuse degenerative changes are seen with multilevel osteophytes. C2-3. Small central disc protrusion is present. There is no canal stenosis or significant canal stenosis or neural foraminal narrowing. C3-4: Disc osteophyte complex is present. There are large anterior osteophytes with mild right neural foraminal narrowing. C4-5: Disc osteophyte complex is present. There are large anterior osteophytes. C5-6: This level is fused. There is mild bilateral neural foraminal narrowing. There is mild central canal stenosis with an AP diameter of the thecal sac of 8 mm. C6-7: This level is fused. Osteophytes are present with mild right and moderate left neural foraminal narrowing. C7-T1: There is no significant canal stenosis or neural foraminal narrowing. IMPRESSION: No fracture or acute bony abnormality identified. Fusion from C5-C7. Reviewed, Interpreted and Dictated by Jarred Ojeda III, MD Transcribed by Monique Morgan Authenticated by Jarred Ojeda III, MD on 12/24/2021 08:09:24 AM [facility]
== END ==
PROVIDERS: PCP Nurse Practitioner Family; Visit Provider Physician Assistant Medical
DX: M50.30 Other cervical disc degeneration, unspecified cervical region (principal); M79.602 Pain in left arm; Z98.1 Arthrodesis status
CPT/HCPCS: 72125

== ENCOUNTER 2022-02-05 09:00 | Outpatient (RCR) | payer OTHER, SELFPAY | END 2022-02-05 09:05 | disposition home or self-care (01) | LOC: PT 09:00 | PROVIDERS: PCP Nurse Practitioner Family; Visit Provider Physician Assistant Medical | DX: M54.2 Cervicalgia (principal); M47.816 Spondylosis without myelopathy or radiculopathy, lumbar region; M50.30 Other cervical disc degeneration, unspecified cervical region; M51.36 Other intervertebral disc degeneration, lumbar region | CPT/HCPCS: 97010; 97014; 97110; 97140; 97163; G0283 ==

== ENCOUNTER → 2022-03-06 07:27 | Outpatient (CLI) | payer MEDICARE, OTHER, SELFPAY ==
--- NOTE | 2022-03-06 07:31 | MR_ITS ---
FINAL REPORT CLINICAL HISTORY: NECK PAIN hx of neck surgery x 4 years ago neck pain worse on left side pain , numbness and tingling down left arm symptoms since surgery x 4 years ago no injury or trauma COMPARISON: 05/13/2020 FINDINGS: Multi planar MR imaging was obtained of the cervical spine. There is abnormal decreased signal throughout the cervical discs. The vertebrae are of normal height. Magnetic susceptibility artifact is seen at C4-5, C5-6, and C6-7. There is no malalignment. The cervical cord demonstrates normal signal and configuration. C2-C3: There is no evidence of significant disc bulge or protrusion. There is no significant facet hypertrophy. C3-C4: There is no evidence of significant disc bulge or protrusion. There is no significant facet hypertrophy. C4-C5: There is no evidence of significant disc bulge or protrusion. There is no significant facet hypertrophy. C5-C6: Mild diffuse disc bulge and endplate hypertrophy are present. There is rhaz-qm-aiiolcfw right and moderate left neural foraminal narrowing. C6-C7: Large disc osteophyte complex is present eccentric to the left. There is moderate to high-grade compromise of the left side of the spinal canal. C7-T1: There is no evidence of significant disc bulge or protrusion. There is no significant facet hypertrophy. IMPRESSION: Diffuse disc bulge at C5-6 with bilateral neural foraminal narrowing. Large osteophyte complex at C6-7 with moderate to high-grade compromise of the left side of the spinal canal. Findings are similar to previous. Reviewed, Interpreted and Dictated by Jefferson Brown MD Transcribed by Monique Morgan Authenticated by Jefferson Brown MD on 03/06/2022 11:17:[address] [facility]
== END ==
PROVIDERS: PCP Nurse Practitioner Family; Visit Provider Neurological Surgery
DX: M54.2 Cervicalgia (principal); M79.602 Pain in left arm; Z98.1 Arthrodesis status
CPT/HCPCS: 72141; 76376

== ENCOUNTER → 2022-04-03 13:04 | Outpatient (CLI) | payer MEDICARE, OTHER, SELFPAY ==
--- NOTE | 2022-04-03 | CA_ITS ---
FINAL REPORT TECHNIQUE: Color Doppler, duplex Doppler and compression sonography of the left lower extremity deep venous systems was performed. CLINICAL HISTORY: LLE pain from Left buttock to left calf ASA 81 mg qd FINDINGS: There is no evidence of deep venous thrombosis from the level of the groin to the calf. The veins are patent and compressible. IMPRESSION: No evidence of deep venous thrombosis left lower extremity. Reviewed, Interpreted and Dictated by Jarred Ojeda III, MD Transcribed by Moo Montez Authenticated by Jarred Ojeda III, MD on 04/03/2022 02:21:[address] [facility]
== END ==
PROVIDERS: PCP Nurse Practitioner Family; Visit Provider Nurse Practitioner Family
DX: M79.605 Pain in left leg (principal)
CPT/HCPCS: 93971

== ENCOUNTER → 2022-04-10 13:49 | Outpatient (CLI) | payer MEDICARE, OTHER, SELFPAY | PROVIDERS: PCP Nurse Practitioner Family; Visit Provider Student in an Organized Health Care Education/Training Program | DX: Z01.812 Encounter for preprocedural laboratory examination (principal); Z11.52 Encounter for screening for COVID-19 | CPT/HCPCS: C9803; U0003; U0005 ==

== ENCOUNTER → 2022-04-30 09:50 | Outpatient (CLI) | payer MEDICARE, OTHER, SELFPAY ==
--- NOTE | 2022-04-30 09:55 | XR_ITS ---
FINAL REPORT CLINICAL HISTORY: LT THIGH PAIN FINDINGS: LEFT FEMUR Two views were obtained. There are mild degenerative changes of the hip. There are zwen-bn-[id number] degenerative changes of the knee. There is chronic calcification at the lesser trochanter. The joint spaces appear normal. No acute soft tissue abnormality is identified. IMPRESSION: Degenerative changes as above. Reviewed, Interpreted and Dictated by Jarred Ojeda III, MD Transcribed by Monique Morgan Authenticated and [facility]
== END ==
PROVIDERS: PCP Nurse Practitioner Family; Visit Provider Nurse Practitioner Family
DX: M79.652 Pain in left thigh (principal)
CPT/HCPCS: 73552

== ENCOUNTER → 2022-05-30 08:24 | Outpatient (CLI) | payer MEDICARE, OTHER, SELFPAY ==
--- NOTE | 2022-05-30 08:28 | MR_ITS ---
PROCEDURE INFORMATION: Exam: MR Lumbar Spine Without Contrast Exam date and time: 05/30/2022 8:29 AM Age: 67 years old Clinical indication: Low back pain; Additional info: Sciatica associated w/ disorder of l-spine. Left sided low back pain with left leg pain, numbness and tingling. No injury or trauma. TECHNIQUE: Imaging protocol: Magnetic resonance imaging of the lumbar spine without contrast. COMPARISON: MR LUMBAR SPINE WO CON 08/09/2020 1:43 PM FINDINGS: Bones/joints: See L3-L4 finding. Spinal cord: The conus extends inferiorly to L1-L2. L1-L2: No significant disc disease. No significant spinal canal stenosis. No neural foraminal stenosis. L2-L3: No significant disc disease. No significant spinal canal stenosis. No neural foraminal stenosis. L3-L4: 3-3.5 mm right lateral disc bulge at L3-L4. Findings new. Mild right neural foraminal stenosis. Mild ligamentum flavum hypertrophy. Findings have slightly progressed since the previous study. AP dimensions of the spinal canal: 9 mm. L4-L5: Approximate 3 mm broad based and lateral disc bulge. Moderate ligamentum flavum hypertrophy with accompanying facet hypertrophy again demonstrated. Mild-moderate right greater than left lateral recess stenosis. Findings stable. Mild bilateral neural foraminal stenosis. L5-S1: Mild-moderate hypertrophic facet changes again demonstrated. Soft tissues: Unremarkable. Other findings: Diffuse changes of disc degeneration. IMPRESSION: 1. 3-3.5 mm right lateral disc bulge at L3-L4. Findings new. Mild right neural foraminal stenosis. AP dimensions of the spinal canal: 9 mm. 2. 3 mm broad based on lateral disc bulge at L4-L5. Mild-moderate avtwi-hbslsyl-pufq-left lateral recess stenosis. Mild bilateral neural foraminal stenosis. Findings stable. 3. Multilevel hypertrophic facet changes.
== END ==
PROVIDERS: PCP Nurse Practitioner Family; Visit Provider Neurological Surgery
DX: M53.86 Other specified dorsopathies, lumbar region (principal)
CPT/HCPCS: 72148; 76376

== ENCOUNTER 2022-06-25 10:00 | Outpatient (RCR) | payer MEDICARE, OTHER, SELFPAY | END 2022-06-25 10:05 | disposition home or self-care (01) | LOC: PT 10:00 | PROVIDERS: PCP Nurse Practitioner Family; Visit Provider Nurse Practitioner Family | DX: M54.42 Lumbago with sciatica, left side (principal); M79.652 Pain in left thigh; M79.605 Pain in left leg | CPT/HCPCS: 97010; 97012; 97014; 97110; 97140; 97163; 97164; G0283 ==

== ENCOUNTER → 2022-07-07 09:49 | Outpatient (CLI) | payer MEDICARE, OTHER, SELFPAY ==
--- NOTE | 2022-07-07 09:55 | MR_ITS ---
FINAL REPORT CLINICAL HISTORY: DIZZINESS X 1 YEAR HAS GOTTEN WORSE OVER THE LAST FEW MONTHS FAMILY HX OF GLEOBLASTOMA HEADACHES FINDINGS: Multiplanar MR imaging of the brain was performed without contrast. There are scattered foci of increased T2 signal in the cerebral white matter that have a nonspecific appearance but likely represent mild chronic ischemic/gliotic changes. There is no evidence of intracranial hemorrhage or mass. No abnormal ventricular dilatation is identified. No abnormal extra-axial fluid collection is seen. No abnormality is seen on the diffusion weighted images. The posterior fossa and brainstem are unremarkable. Normal major vessel vascular flow voids are seen. IMPRESSION: Mild chronic ischemic/gliotic changes. No acute intracranial abnormality. Reviewed, Interpreted and Dictated by Jarred Ojeda III, MD Transcribed by Monique Morgan Authenticated and [facility]
== END ==
PROVIDERS: PCP Nurse Practitioner Family; Visit Provider Nurse Practitioner Family
DX: R42 Dizziness and giddiness (principal)
CPT/HCPCS: 70551

== ENCOUNTER → 2022-07-16 15:20 | Outpatient (CLI) | payer MEDICARE, OTHER, SELFPAY ==
[2022-07-16 16:56] LABS: Basophils # 0.1 K/mm3 (0-0.2); Basophils % 0.9 % (0.1-2.0); Eosinophils # 0.2 K/mm3 (0.0-0.4); Eosinophils % 3.8 % (0.1-12.0); Hematocrit 43.9 % (37.0-47.0); Hemoglobin 13.1 g/dL (12.2-16.2); Lymphocytes # 1.5 K/mm3 (0.7-4.5); Lymphocytes % 25.4 % (10-50); Mean Corpuscular HGB Conc 29.9 g/dL (31.8-35.4); Mean Corpuscular Hemoglobin 28.3 pg (27.0-31.2); Mean Corpuscular Volume 94.6 fl (81-99); Mean Platelet Volume 8.1 fl (7.4-10.4); Monocytes # 0.3 K/mm3 (0.1-1.0); Monocytes % 5.8 % (1.7-9.3); Neutrophils # 3.7 K/mm3 (1.8-7.8); Neutrophils % 64.1 % (37.0-80.0); Platelet Count 201 K/mm3 (142-424); Red Blood Count 4.64 M/mm3 (4.20-5.40); Red Cell Distribution Width 16.1 % (11.5-17.5); White Blood Count 5.8 K/mm3 (4.8-10.8)
[2022-07-16 17:09] LABS: Alanine Aminotransferase 35 U/L (12-78); Albumin Level 4.1 g/dl (3.5-5.0); Albumin/Globulin Ratio 1.7 (1.1-1.8); Alkaline Phosphatase 90 U/L (38-126); Anion Gap 13.3 mEq/L (5-15); Aspartate Amino Transferase 30 U/L (14-36); Bilirubin,Total 0.3 mg/dl (0.2-1.3); Blood Urea Nitrogen 15 mg/dl (7-17); Calcium 9.5 mg/dl (8.4-10.2); Carbon Dioxide 27 mmol/L (22.0-30.0); Chloride 107 mmol/L (98-107); Estimated Glomerular Filt Rate 100 ml/min (>60); GFR (African American) 121 ML/MIN (>60); Globulin 2.4 g/dL (1.3-3.2); Glucose 99 mg/dl (74-100); Potassium 4.3 mmoL/L (3.5-5.1); Sodium 143 mmol/L (136-145); Total Protein,Serum 6.5 g/dl (6.3-8.2)
[2022-07-16 17:23] LABS: Troponin I < 0.01 ng/ml (0.00-0.034)
== END ==
PROVIDERS: PCP Nurse Practitioner Family; Visit Provider Nurse Practitioner Family
DX: R07.9 Chest pain, unspecified (principal)
CPT/HCPCS: 36415; 80053; 84484; 85025

== ENCOUNTER → 2022-08-05 10:19 | Outpatient (CLI) | payer MEDICARE, OTHER, SELFPAY ==
[2022-08-05 12:43] LABS: Thyroid Stimulating Hormone 1.67 uIU/mL (0.465-4.68)
[2022-08-05 12:47] LABS: Ferritin 14.6 ng/ml (11.1-264)
[2022-08-05 13:19] LABS: Vitamin B12 287 pg/mL (239-931)
[2022-08-05 13:21] LABS: Folate 7.56 ng/mL
[2022-08-06 12:12] LABS: Anti-Centromere B Antibodies <0.2 AI (0.0-0.9); Anti-DNA (DS) Ab Qn 6 IU/mL (0-9); Anti-Jo-1 <0.2 AI (0.0-0.9); Anti-Smith Antibody <0.2 AI (0.0-0.9); Antichromatin Antibodies <0.2 AI (0.0-0.9); Antiscleroderma-70 Antibodies <0.2 AI (0.0-0.9); RNP Antibodies <0.2 AI (0.0-0.9); Sjogren's Anti-SS-A <0.2 AI (0.0-0.9); Sjogren's Anti-SS-B 0.6 AI (0.0-0.9)
== END ==
PROVIDERS: PCP Nurse Practitioner Family; Visit Provider Specialist
DX: I45.10 Unspecified right bundle-branch block (principal); E78.2 Mixed hyperlipidemia
CPT/HCPCS: 36415; 82607; 82728; 82746; 84443; 86225; 86235

== ENCOUNTER → 2022-08-17 15:55 | Outpatient (CLI) | payer MEDICARE, OTHER, SELFPAY | PROVIDERS: PCP Nurse Practitioner Family; Visit Provider Specialist | DX: G47.33 Obstructive sleep apnea (adult) (pediatric) (principal); G25.81 Restless legs syndrome; R06.83 Snoring | CPT/HCPCS: G0399 ==

== ENCOUNTER 2022-10-13 19:11 | Emergency (ER) | payer MEDICARE, SELFPAY ==
[2022-10-13 19:40] VITALS: BP 140/86; PULSE 86; RESP 18; TEMP 36.7; O2SAT 100; BMI 33.2
[2022-10-13 19:46] LABS: Apearance,Urine Cloudy (Clear); Bilirubin,Urine Negative (Negative); Blood, Urine 3+ (Negative); Color,Urine Dark Yellow (Yellow); Glucose,Urine (UA) 1000 (Negative); Ketones,Urine Negative (Negative); PH,Urine 7.5 (5.0-8.5); Protein,Urine 1+ (Negative); Specific Gravity, Urine 1.025 (1.005-1.030); UTC Leukocyte Esterase,Urine Negative (Negative); UTC Nitrate,Urine Negative (Negative); Urobilinogen,Urine 1 EU/dl (0.2)
--- NOTE | 2022-10-13 19:55 | EXP.UTC ---
Discharge Plan Disposition Patient Disposition: Home, Self-Care Condition: Good Prescriptions Prescriptions: New cefdinir 300 mg capsule 300 mg PO BID Qty: 20 0RF phenazopyridine [Pyridium] 200 mg tablet 200 mg PO Q8H 2 Days Qty: 6 0RF fluconazole [Diflucan] 150 mg tablet 150 mg PO Q3D 1 Days Qty: 1 0RF No Action docusate sodium 100 mg capsule 100 mg PO DAILY albuterol sulfate [ProAir HFA] 90 mcg/actuation HFA aerosol inhaler 2 puff INHALATION ONCE PRN metformin 1,000 mg tablet 1,000 mg PO BID glipizide 10 mg tablet 10 mg PO BID levothyroxine 75 mcg capsule 75 mcg PO ONCE allopurinol 300 mg tablet 300 mg PO ONCE meloxicam 15 mg tablet 15 mg PO DAILY linagliptin 5 mg tablet 5 mg PO DAILY escitalopram oxalate 10 mg tablet 10 mg PO DAILY Label Comments: TAKE ONE TABLET BY MOUTH EVERY DAY gabapentin 300 mg capsule 300 mg PO BID Label Comments: TAKE ONE CAPSULE BY MOUTH EVERY MORNING, TAKE ONE CAPSULE BY MOUTH EVERY NOON, TAKE TWO CAPSULES BY MOUTH EVERY DAY AT BEDTIME MAY CAUSE PIERRE empagliflozin 25 mg tablet 25 mg PO DAILY Label Comments: TAKE ONE TABLET BY MOUTH EVERY DAY baclofen 10 mg tablet 10 mg PO DAILY PRN hydroxyzine HCl 25 mg tablet 25 mg PO Q8H PRN furosemide 40 mg tablet 40 mg PO DAILY spironolactone 25 mg tablet See Rx Instructions .ROUTE .COMPLEX Qty: 60 5RF Dose Instruction: TAKE ONE TABLET BY MOUTH TWICE DAILY Rx Instructions: TAKE ONE TABLET BY MOUTH TWICE DAILY ranolazine 500 mg tablet extended release 12 hr See Rx Instructions .ROUTE .COMPLEX Qty: 60 5RF Dose Instruction: TAKE ONE TABLET BY MOUTH TWICE DAILY Rx Instructions: TAKE ONE TABLET BY MOUTH TWICE DAILY pantoprazole 20 mg tablet,delayed release (DR/EC) See Rx Instructions .ROUTE .COMPLEX Qty: 30 5RF Dose Instruction: TAKE ONE TABLET BY MOUTH EVERY DAY Rx Instructions: TAKE ONE TABLET BY MOUTH EVERY DAY aspirin 81 mg tablet,delayed release (DR/EC) See Rx Instructions .ROUTE .COMPLEX Qty: 30 5RF Dose Instruction: TAKE ONE TABLET BY MOUTH EVERY DAY Rx Instructions: TAKE ONE TABLET BY MOUTH EVERY DAY atorvastatin 80 mg tablet See Rx Instructions .ROUTE .COMPLEX Qty: 30 5RF Dose Instruction: TAKE ONE TABLET BY MOUTH DAILY DIRECTED Rx Instructions: TAKE ONE TABLET BY MOUTH DAILY DIRECTED bisoprolol fumarate 5 mg tablet 5 mg PO DAILY Qty: 90 1RF clopidogrel 75 mg tablet See Rx Instructions .ROUTE .COMPLEX Qty: 90 1RF Dose Instruction: TAKE ONE TABLET BY MOUTH EVERY DAY FOR HEART Rx Instructions: TAKE ONE TABLET BY MOUTH EVERY DAY FOR HEART fluticasone propionate 16 GM spray,suspension 1 spray INTRANASAL ONCE Rx Instructions: administer into each nostril Referrals Follow up/Referrals: Rose Carlson APRN [Primary Care Provider] - See instructions Activity Restrictions/Add. Instructions Additional Instructions/Restrictions: *Increase fluids. Water not Soda or Tea *Start antibiotic immediately and be sure to take as ordered for the FULL length of time although you should start to see improvement over the next 48 hours *Pyridium as needed Remember this medication will turn your urine . This is normal but it will stain what ever it gets on *You should not use Pyridium for more than 48 hours. If so , follow up with your primary physician to review urine culture and ensure that antibiotic is adequate for infection *Be SURE to follow up anytime for new or worsening symptoms with your family doctor. AND in 48 hours for urine culture results with your family doctor, if you do not have a doctor then you may call back to the [facility] for urine culture results and further treatment. We do recommend that you choose and establish care with a Primary Care Physician. ?AND follow up with them ?in 10-14 days t
[2022-10-13 19:56] VITALS: BP 140/86; PULSE 86; RESP 18; TEMP 36.7; O2SAT 100
== END 2022-10-13 20:31 | disposition home or self-care (01) ==
PROVIDERS: Emergency Provider Nurse Practitioner; PCP Nurse Practitioner Family
DX: N39.0 Urinary tract infection, site not specified (principal); R31.9 Hematuria, unspecified; D64.9 Anemia, unspecified; I10 Essential (primary) hypertension; I25.110 Atherosclerotic heart disease of native coronary artery with unstable angina pectoris; I25.2 Old myocardial infarction; I45.10 Unspecified right bundle-branch block; E11.9 Type 2 diabetes mellitus without complications; E78.5 Hyperlipidemia, unspecified; M54.50 Low back pain, unspecified; J98.4 Other disorders of lung; F32.A Depression, unspecified; F41.9 Anxiety disorder, unspecified; Z79.02 Long term (current) use of antithrombotics/antiplatelets; Z79.51 Long term (current) use of inhaled steroids; Z79.52 Long term (current) use of systemic steroids; Z79.82 Long term (current) use of aspirin; Z79.84 Long term (current) use of oral hypoglycemic drugs; Z79.899 Other long term (current) drug therapy; Z87.891 Personal history of nicotine dependence; Z82.49 Family history of ischemic heart disease and other diseases of the circulatory system; Z80.9 Family history of malignant neoplasm, unspecified
CPT/HCPCS: 81003; 87086; 87088; 87186; 96372; 99213; G0463; J0696

== ENCOUNTER 2022-10-16 15:30 | Emergency (ER) | payer MEDICARE, SELFPAY ==
[2022-10-16 15:36] VITALS: BP 103/62; PULSE 84; RESP 16; TEMP 37.3; O2SAT 100; BMI 37.7
--- NOTE | 2022-10-16 16:40 | EXP.UTC ---
Discharge Plan Disposition Patient Disposition: Home, Self-Care Condition: Good Prescriptions Prescriptions: New benzonatate [benzonatate] 100 mg capsule 100 mg PO TIDP PRN (Reason: Cough) Qty: 30 0RF oseltamivir [Tamiflu] 75 mg capsule 75 mg PO BID Qty: 10 0RF methylprednisolone 4 mg Tablets,Dose Pack 4 mg PO DIRECTED Qty: 21 0RF No Action docusate sodium 100 mg capsule 100 mg PO DAILY albuterol sulfate [ProAir HFA] 90 mcg/actuation HFA aerosol inhaler 2 puff INHALATION ONCE PRN metformin 1,000 mg tablet 1,000 mg PO BID glipizide 10 mg tablet 10 mg PO BID levothyroxine 75 mcg capsule 75 mcg PO ONCE allopurinol 300 mg tablet 300 mg PO ONCE meloxicam 15 mg tablet 15 mg PO DAILY linagliptin 5 mg tablet 5 mg PO DAILY escitalopram oxalate 10 mg tablet 10 mg PO DAILY Label Comments: TAKE ONE TABLET BY MOUTH EVERY DAY gabapentin 300 mg capsule 300 mg PO BID Label Comments: TAKE ONE CAPSULE BY MOUTH EVERY MORNING, TAKE ONE CAPSULE BY MOUTH EVERY NOON, TAKE TWO CAPSULES BY MOUTH EVERY DAY AT BEDTIME MAY CAUSE PIERRE empagliflozin 25 mg tablet 25 mg PO DAILY Label Comments: TAKE ONE TABLET BY MOUTH EVERY DAY baclofen 10 mg tablet 10 mg PO DAILY PRN hydroxyzine HCl 25 mg tablet 25 mg PO Q8H PRN furosemide 40 mg tablet 40 mg PO DAILY spironolactone 25 mg tablet See Rx Instructions .ROUTE .COMPLEX Qty: 60 5RF Dose Instruction: TAKE ONE TABLET BY MOUTH TWICE DAILY Rx Instructions: TAKE ONE TABLET BY MOUTH TWICE DAILY ranolazine 500 mg tablet extended release 12 hr See Rx Instructions .ROUTE .COMPLEX Qty: 60 5RF Dose Instruction: TAKE ONE TABLET BY MOUTH TWICE DAILY Rx Instructions: TAKE ONE TABLET BY MOUTH TWICE DAILY pantoprazole 20 mg tablet,delayed release (DR/EC) See Rx Instructions .ROUTE .COMPLEX Qty: 30 5RF Dose Instruction: TAKE ONE TABLET BY MOUTH EVERY DAY Rx Instructions: TAKE ONE TABLET BY MOUTH EVERY DAY aspirin 81 mg tablet,delayed release (DR/EC) See Rx Instructions .ROUTE .COMPLEX Qty: 30 5RF Dose Instruction: TAKE ONE TABLET BY MOUTH EVERY DAY Rx Instructions: TAKE ONE TABLET BY MOUTH EVERY DAY atorvastatin 80 mg tablet See Rx Instructions .ROUTE .COMPLEX Qty: 30 5RF Dose Instruction: TAKE ONE TABLET BY MOUTH DAILY DIRECTED Rx Instructions: TAKE ONE TABLET BY MOUTH DAILY DIRECTED bisoprolol fumarate 5 mg tablet 5 mg PO DAILY Qty: 90 1RF clopidogrel 75 mg tablet See Rx Instructions .ROUTE .COMPLEX Qty: 90 1RF Dose Instruction: TAKE ONE TABLET BY MOUTH EVERY DAY FOR HEART Rx Instructions: TAKE ONE TABLET BY MOUTH EVERY DAY FOR HEART fluticasone propionate 16 GM spray,suspension 1 spray INTRANASAL ONCE Rx Instructions: administer into each nostril cefdinir 300 mg capsule 300 mg PO BID Qty: 20 0RF phenazopyridine [Pyridium] 200 mg tablet 200 mg PO Q8H 2 Days Qty: 6 0RF fluconazole [Diflucan] 150 mg tablet 150 mg PO Q3D 1 Days Qty: 1 0RF Referrals Follow up/Referrals: Rose Carlson APRN [Primary Care Provider] - See instructions Activity Restrictions/Add. Instructions Additional Instructions/Restrictions: Drink plenty of fluids. Take tylenol or ibuprofen for pain or fever. Take the medications as directed. Follow up with your regular doctor. GO TO THE ER FOR ANY WORSENING SYMPTOMS Clinical Impressions Clinical Impression: Influenza A Instructions Patient Instructions: DI for Influenza -- Adult, Influenza, Oseltamivir Discharge ED Provider: Bruce Celis [facility] HPI General Stated complaint: diff breathing,body aches Mode of Arrival: Ambulatory Source of Information: Patient Limitations: No Limitations Time Seen by Provider: 10/16/22 16:40 Description of Symptoms (Recalled from Triage Doc. b
[2022-10-16 16:47] VITALS: BP 103/62; PULSE 84; RESP 16; TEMP 37.3; O2SAT 100
[2022-10-16 16:48] LABS: UTC Influenza A Antigen Positive (Negative); UTC Influenza B Antigen Negative (Negative)
== END 2022-10-16 17:27 | disposition home or self-care (01) ==
PROVIDERS: Emergency Provider Nurse Practitioner Family; PCP Nurse Practitioner Family
DX: J10.1 Influenza due to other identified influenza virus with other respiratory manifestations (principal)
CPT/HCPCS: 87804; 99212; G0463

== ENCOUNTER → 2022-12-01 09:58 | Outpatient (CLI) | payer MEDICARE, SELFPAY ==
[2022-12-01 11:05] LABS: Basophils # 0.1 K/mm3 (0-0.2); Basophils % 0.8 % (0.1-2.0); Eosinophils # 0.1 K/mm3 (0.0-0.4); Eosinophils % 1.8 % (0.1-12.0); Hematocrit 46.1 % (37.0-47.0); Hemoglobin 14.1 g/dL (12.2-16.2); Lymphocytes # 1.1 K/mm3 (0.7-4.5); Lymphocytes % 16.4 % (10-50); Mean Corpuscular HGB Conc 30.7 g/dL (31.8-35.4); Mean Corpuscular Hemoglobin 28.2 pg (27.0-31.2); Mean Platelet Volume 7.6 fl (7.4-10.4); Monocytes # 0.3 K/mm3 (0.1-1.0); Monocytes % 4.5 % (1.7-9.3); Neutrophils % 76.4 % (37.0-80.0); Platelet Count 202 K/mm3 (142-424); Red Blood Count 5.01 M/mm3 (4.20-5.40); Red Cell Distribution Width 15.2 % (11.5-17.5); White Blood Count 6.6 K/mm3 (4.8-10.8)
[2022-12-01 12:11] LABS: Alanine Aminotransferase 34 U/L (12-78); Albumin Level 4.4 g/dl (3.5-5.0); Albumin/Globulin Ratio 1.6 (1.1-1.8); Alkaline Phosphatase 84 U/L (38-126); Anion Gap 14.9 mEq/L (5-15); Aspartate Amino Transferase 31 U/L (14-36); Bilirubin,Total 0.7 mg/dl (0.2-1.3); Blood Urea Nitrogen 16 mg/dl (7-17); Carbon Dioxide 27 mmol/L (22.0-30.0); Chloride 105 mmol/L (98-107); Estimated Glomerular Filt Rate 124 ml/min (>60); GFR (African American) 150 ML/MIN (>60); Globulin 2.7 g/dL (1.3-3.2); Glucose 130 mg/dl (74-100); Magnesium 1.6 mg/dl (1.6-2.3); Potassium 3.9 mmoL/L (3.5-5.1); Sodium 143 mmol/L (136-145); Total Protein,Serum 7.1 g/dl (6.3-8.2)
[2022-12-01 12:16] LABS: C-Reactive Protein 2.3 mg/L (0-4)
[2022-12-01 12:41] LABS: Thyroid Stimulating Hormone 2.25 uIU/mL (0.465-4.68)
[2022-12-01 14:21] LABS: Ferritin 14.6 ng/ml (11.1-264)
[2022-12-01 14:33] LABS: Vitamin B12 531 pg/mL (239-931)
== END ==
PROVIDERS: PCP Nurse Practitioner Family; Visit Provider Nurse Practitioner Family
DX: R42 Dizziness and giddiness (principal); R26.89 Other abnormalities of gait and mobility; R53.1 Weakness; R79.0 Abnormal level of blood mineral
CPT/HCPCS: 36415; 80053; 82607; 82728; 83735; 84443; 85025; 86140

== ENCOUNTER 2022-12-05 15:39 | Emergency (ER) | payer MEDICARE, SELFPAY ==
[2022-12-05 16:30] VITALS: BP 128/49; PULSE 76; RESP 18; TEMP 36.7; O2SAT 94; BMI 36.1
--- NOTE | 2022-12-05 17:01 | XR_ITS ---
PROCEDURE INFORMATION: Exam: XR Chest Exam date and time: 12/05/2022 5:04 PM Age: 67 years old Clinical indication: Shortness of breath; Additional info: Weakness TECHNIQUE: Imaging protocol: Radiologic exam of the chest. Views: 2 views. COMPARISON: CR XR CHEST 2V 09/06/2019 4:42 PM FINDINGS: Lungs: Mild pulmonary vascular congestion. No acute airspace consolidation. Pleural spaces: Unremarkable. No pleural effusion. No pneumothorax. Heart/Mediastinum: Mild cardiac enlargement. Bones/joints: Unremarkable. IMPRESSION: Cardiomegaly and pulmonary vascular congestion.
--- NOTE | 2022-12-05 17:08 | PC.NURSE ---
urine sent to lab
[2022-12-05 17:24] LABS: Chloride 104 mmol/L (98-107); Sodium 143 mmol/L (136-145)
[2022-12-05 17:25] LABS: Potassium 4.3 mmoL/L (3.5-5.1)
[2022-12-05 17:26] LABS: Basophils % 0.6 % (0.1-2.0); Eosinophils # 0.2 K/mm3 (0.0-0.4); Eosinophils % 2.6 % (0.1-12.0); Hematocrit 42.4 % (37.0-47.0); Hemoglobin 13.7 g/dL (12.2-16.2); Lymphocytes # 1.2 K/mm3 (0.7-4.5); Lymphocytes % 18.6 % (10-50); Mean Corpuscular HGB Conc 32.4 g/dL (31.8-35.4); Mean Corpuscular Hemoglobin 28.6 pg (27.0-31.2); Mean Corpuscular Volume 88.5 fl (81-99); Mean Platelet Volume 7.5 fl (7.4-10.4); Monocytes # 0.4 K/mm3 (0.1-1.0); Monocytes % 5.8 % (1.7-9.3); Neutrophils # 4.8 K/mm3 (1.8-7.8); Neutrophils % 72.4 % (37.0-80.0); Platelet Count 222 K/mm3 (142-424); Red Blood Count 4.79 M/mm3 (4.20-5.40); Red Cell Distribution Width 15.1 % (11.5-17.5); White Blood Count 6.7 K/mm3 (4.8-10.8)
[2022-12-05 17:27] LABS: Microscopic, Urine URINE MICROSCOPIC (MICROSCOPIC)
[2022-12-05 17:27] LABS: Alanine Aminotransferase 43 U/L (12-78); Alkaline Phosphatase 92 U/L (38-126); Aspartate Amino Transferase 41 U/L (14-36); Bilirubin,Total 0.5 mg/dl (0.2-1.3); Blood Urea Nitrogen 18 mg/dl (7-17); Creatinine Clearance Estimated 82 mL/min (50-200); Estimated Glomerular Filt Rate 100 ml/min (>60); GFR (African American) 121 ML/MIN (>60)
[2022-12-05 17:28] LABS: Albumin Level 4.4 g/dl (3.5-5.0); Albumin/Globulin Ratio 1.4 (1.1-1.8); Anion Gap 15.3 mEq/L (5-15); Calcium 9.4 mg/dl (8.4-10.2); Carbon Dioxide 28 mmol/L (22.0-30.0); Globulin 3.2 g/dL (1.3-3.2); Glucose 119 mg/dl (74-100); Total Protein,Serum 7.6 g/dl (6.3-8.2)
[2022-12-05 17:30] VITALS: BP 127/81; PULSE 74; O2SAT 95
[2022-12-05 17:43] LABS: Troponin I < 0.01 ng/ml (0.00-0.034)
[2022-12-05 17:44] LABS: Appearance,Urine CLEAR (Clear); Bilirubin,Urine Negative (Negative); Blood, Urine Negative (Negative); Color,Urine YELLOW (Yellow); Glucose,Urine (UA) 3+ (Negative); Ketones,Urine Negative (Negative); Leukocyte Esterase,Urine Negative (Negative); Nitrate,Urine Negative (Negative); PH,Urine 5.5 (5.0-8.5); Protein,Urine Negative (Negative); Specific Gravity, Urine 1.025 (1.005-1.030); Urobilinogen,Urine 0.2 EU/dl (0.2)
[2022-12-05 17:53] LABS: Squamous Epithelial Cell,Urine Occasional #/hpf (0-5); WBC,Urine Occasional #/hpf (0-3)
[2022-12-05 18:00] VITALS: BP 124/62; PULSE 69; O2SAT 92
--- NOTE | 2022-12-05 18:04 | ECG_ITS ---
APPROVED REPORT Exam: Resting ECG HR:60 bpm ECG Measurements Heart Rate 60 AXES AK 210 P 53 QRSd 156 QRS -24 QT 448 T 38 QTc 450 Conclusion SINUS RHYTHM WITH SINUS ARRHYTHMIA WITH FIRST DEGREE AV BLOCK LEFT AXIS DEVIATION [QRS AXIS < -20] RIGHT BUNDLE BRANCH BLOCK ABNORMAL ECG UNCONFIRMED REPORT Electronically signed by : Vamsi Langford MD 12/06/2022 09:52:36
[2022-12-05 18:30] VITALS: BP 124/54; PULSE 75; O2SAT 96
[2022-12-05 19:00] VITALS: BP 142/74; PULSE 75; O2SAT 96
--- NOTE | 2022-12-05 19:22 | PC.NURSE ---
Dr. Lorenz at [facility]
--- NOTE | 2022-12-05 19:26 | HMH.EDGENADL ---
Discharge Plan Disposition Patient Disposition: Home, Self-Care Condition: Good Chief Complaint: Weakness Prescriptions Prescriptions: No Action docusate sodium 100 mg capsule 100 mg PO DAILY albuterol sulfate [ProAir HFA] 90 mcg/actuation HFA aerosol inhaler 2 puff INHALATION ONCE PRN metformin 1,000 mg tablet 1,000 mg PO BID glipizide 10 mg tablet 10 mg PO BID levothyroxine 75 mcg capsule 75 mcg PO ONCE allopurinol 300 mg tablet 300 mg PO ONCE meloxicam 15 mg tablet 15 mg PO DAILY linagliptin 5 mg tablet 5 mg PO DAILY escitalopram oxalate 10 mg tablet 10 mg PO DAILY Label Comments: TAKE ONE TABLET BY MOUTH EVERY DAY gabapentin 300 mg capsule 300 mg PO BID Label Comments: TAKE ONE CAPSULE BY MOUTH EVERY MORNING, TAKE ONE CAPSULE BY MOUTH EVERY NOON, TAKE TWO CAPSULES BY MOUTH EVERY DAY AT BEDTIME MAY CAUSE PIERRE empagliflozin 25 mg tablet 25 mg PO DAILY Label Comments: TAKE ONE TABLET BY MOUTH EVERY DAY baclofen 10 mg tablet 10 mg PO DAILY PRN hydroxyzine HCl 25 mg tablet 25 mg PO Q8H PRN trazodone 50 mg tablet 50 mg PO DAILY furosemide 40 mg tablet 40 mg PO DAILY spironolactone 25 mg tablet See Rx Instructions .ROUTE .COMPLEX Qty: 60 5RF Dose Instruction: TAKE ONE TABLET BY MOUTH TWICE DAILY Rx Instructions: TAKE ONE TABLET BY MOUTH TWICE DAILY ranolazine 500 mg tablet extended release 12 hr See Rx Instructions .ROUTE .COMPLEX Qty: 60 5RF Dose Instruction: TAKE ONE TABLET BY MOUTH TWICE DAILY Rx Instructions: TAKE ONE TABLET BY MOUTH TWICE DAILY pantoprazole 20 mg tablet,delayed release (DR/EC) See Rx Instructions .ROUTE .COMPLEX Qty: 30 5RF Dose Instruction: TAKE ONE TABLET BY MOUTH EVERY DAY Rx Instructions: TAKE ONE TABLET BY MOUTH EVERY DAY aspirin 81 mg tablet,delayed release (DR/EC) See Rx Instructions .ROUTE .COMPLEX Qty: 30 5RF Dose Instruction: TAKE ONE TABLET BY MOUTH EVERY DAY Rx Instructions: TAKE ONE TABLET BY MOUTH EVERY DAY atorvastatin 80 mg tablet See Rx Instructions .ROUTE .COMPLEX Qty: 30 5RF Dose Instruction: TAKE ONE TABLET BY MOUTH DAILY DIRECTED Rx Instructions: TAKE ONE TABLET BY MOUTH DAILY DIRECTED bisoprolol fumarate 5 mg tablet 5 mg PO DAILY Qty: 90 1RF clopidogrel 75 mg tablet See Rx Instructions .ROUTE .COMPLEX Qty: 90 1RF Dose Instruction: TAKE ONE TABLET BY MOUTH EVERY DAY FOR HEART Rx Instructions: TAKE ONE TABLET BY MOUTH EVERY DAY FOR HEART benzonatate [benzonatate] 100 mg capsule 100 mg PO TIDP PRN (Reason: Cough) Qty: 30 0RF oseltamivir [Tamiflu] 75 mg capsule 75 mg PO BID Qty: 10 0RF methylprednisolone 4 mg Tablets,Dose Pack 4 mg PO DIRECTED Qty: 21 0RF fluticasone propionate 16 GM spray,suspension 1 spray INTRANASAL ONCE Rx Instructions: administer into each nostril cefdinir 300 mg capsule 300 mg PO BID Qty: 20 0RF phenazopyridine [Pyridium] 200 mg tablet 200 mg PO Q8H 2 Days Qty: 6 0RF fluconazole [Diflucan] 150 mg tablet 150 mg PO Q3D 1 Days Qty: 1 0RF Referrals Follow up/Referrals: Rose Carlson APRN [Primary Care Provider] - See instructions Activity Restrictions/Add. Instructions Additional Instructions/Restrictions: At this time was felt you are safe to be discharged home. If new or worsening symptoms do not hesitate to return for continued evaluation. Please follow-up for your MRI as discussed. Please call your neurologist and schedule an appointment for continued evaluation. Clinical Impressions Clinical Impression: Physical deconditioning, Weakness Discharge ED Provider: Giorgi Lorenz General Adult HPI General Chief complaint: Weakness Stated complaint: Weakness Time Seen by Provider: 12/05/22 18:50 Mode of Arrival: Ambulatory Source of Inform
[2022-12-05 19:37] VITALS: BP 142/74; PULSE 72; RESP 18; TEMP 36.6; O2SAT 99
--- NOTE | 2022-12-05 19:37 | PC.NURSE ---
Rechecked pt condition. No needs voiced.
== END 2022-12-05 19:44 | disposition home or self-care (01) ==
PROVIDERS: Emergency Provider Emergency Medicine; PCP Nurse Practitioner Family
DX: R53.1 Weakness (principal); R20.2 Paresthesia of skin; Z72.3 Lack of physical exercise; I25.10 Atherosclerotic heart disease of native coronary artery without angina pectoris; I10 Essential (primary) hypertension; E11.9 Type 2 diabetes mellitus without complications; F32.A Depression, unspecified; I25.2 Old myocardial infarction; I45.10 Unspecified right bundle-branch block; Z90.49 Acquired absence of other specified parts of digestive tract; Z95.5 Presence of coronary angioplasty implant and graft; Z90.710 Acquired absence of both cervix and uterus; Z80.9 Family history of malignant neoplasm, unspecified; Z82.3 Family history of stroke
CPT/HCPCS: 71046; 80053; 81001; 84484; 85025; 93005; 99285

== ENCOUNTER → 2022-12-08 10:08 | Outpatient (CLI) | payer MEDICARE, SELFPAY ==
--- NOTE | 2022-12-08 10:22 | XR_ITS ---
FINAL REPORT CLINICAL HISTORY: fell this morning FINDINGS: Left hip AP and frog leg views of the left hip were obtained. There is no prior exam for comparison. There is no acute fracture or dislocation. There are degenerative changes of the hips bilaterally. Soft tissues are within normal limits. IMPRESSION: No acute osseous abnormality of the left hip. If pain persists, MR is recommended. Reviewed, Interpreted and Dictated by Swati Arnold MD Transcribed by Monique Morgan Authenticated and [facility]
--- NOTE | 2022-12-08 10:22 | XR_ITS ---
FINAL REPORT CLINICAL HISTORY: fall FINDINGS: Left elbow Four views were obtained. There is no acute fracture or dislocation. Joint spaces preserved. There is no joint effusion or other soft tissue abnormality. IMPRESSION: No acute process. Reviewed, Interpreted and Dictated by Swati Arnold MD Transcribed by Monique Morgan Authenticated and [facility]
== END ==
PROVIDERS: PCP Nurse Practitioner Family; Visit Provider Physician Assistant
DX: W19.XXXA Unspecified fall, initial encounter (principal); M25.552 Pain in left hip; M25.522 Pain in left elbow
CPT/HCPCS: 73080; 73502

== ENCOUNTER → 2022-12-10 14:42 | Outpatient (CLI) | payer MEDICARE, SELFPAY ==
--- NOTE | 2022-12-10 14:49 | CT_ITS ---
FINAL REPORT TECHNIQUE: Multiple axial CT sections were performed from the foramen magnum to the vertex. Coronal reformatted images were also obtained. Precontrast and postcontrast injection images were obtained. This study was performed with technique to keep radiation doses as low as reasonably achievable, (ALARA). Individualized dose reduction techniques using automated exposure control or adjustment of mA and/or kV according to the patient size were employed. CLINICAL HISTORY: CONFUSION AND DISORIENTATION. Family history of glioblastoma FINDINGS: The ventricles are normal in size. There is no evidence of hemorrhage or hydrocephalus. There is abnormal hypodensity in the right frontal lobe at the vertex. More posteriorly and centrally is abnormal hypodensity and hyperdensity involving the medial portions of the right greater than left cerebral cortex. There is slight deviation of the superior falx to the left. The brainstem and cerebellum are without acute abnormality. The basal cisterns are preserved. No acute soft tissue abnormality is identified. There is no acute osseous abnormality. On the postcontrast images, there is a peripherally enhancing mass superior to the right lateral ventricle measuring 4.6 x 2.4 cm in axial dimension and 2.6 cm in craniocaudal dimension. This lesion may be in the anterior corpus callosum. 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 Hypodensity at the vertex, likely surrounding cerebral edema. No intracranial hemorrhage. Reviewed, Interpreted and Dictated by Swati Arnold MD Transcribed by Monique Morgan Authenticated and [facility]
== END ==
PROVIDERS: PCP Nurse Practitioner Family; Visit Provider Nurse Practitioner Family
DX: R41.0 Disorientation, unspecified (principal)
CPT/HCPCS: 70470; Q9967

== ENCOUNTER → 2022-12-18 07:59 | Outpatient (CLI) | payer MEDICARE, SELFPAY ==
--- NOTE | 2022-12-18 08:05 | MM_ITS ---
PROCEDURE INFORMATION: Exam: MG Bilateral Screening 3D Mammography Exam date and time: 12/18/2022 8:02 AM Age: 67 years old Clinical indication: Screening examination TECHNIQUE: Imaging protocol: Bilateral Screening tomosynthesis and 2D mammography including computer-aided detection (CAD) when performed. COMPARISON: 1. MG MM DIG MAMM DX UNILAT LT CAD 12/15/2021 1:01 PM 2. MG MM DIG SCREENING MAMM BI W/CAD 01/28/2021 8:33 AM 3. MG MM DIG SCREENING MAMM BI W/CAD 10/27/2019 3:41 PM 4. MG DMSB DIG MAMM-SCREEN SCOTTIE W/CAD 12/30/2016 4:30 PM FINDINGS: MAMMOGRAPHY: Breast composition: There are scattered areas of fibroglandular density. Mass: No suspicious mass. Architectural distortion: None. Calcifications: Biopsy clip related to calcifications in the left upper outer quadrant middle to posterior 3rd, no significant change since 10/27/2019. No suspicious calcifications. Asymmetric density: None. Skin thickening: None. Axillary adenopathy: None. IMPRESSION: No mammographic evidence of malignancy. Annual screening is recommended unless otherwise clinically indicated. ASSESSMENT: BI-RADS Category 2: Benign
== END ==
PROVIDERS: PCP Nurse Practitioner Family; Visit Provider Nurse Practitioner Family
DX: Z12.31 Encounter for screening mammogram for malignant neoplasm of breast (principal)
CPT/HCPCS: 77063; 77067

== ENCOUNTER → 2023-01-22 08:42 | Outpatient (CLI) | payer MEDICARE, SELFPAY ==
--- NOTE | 2023-01-22 08:49 | CT_ITS ---
FINAL REPORT TECHNIQUE: Multiple axial CT sections were performed from the foramen magnum to the vertex. Coronal reformatted images were also obtained. Precontrast and postcontrast injection images were obtained. This study was performed with technique to keep radiation doses as low as reasonably achievable, (ALARA). Individualized dose reduction techniques using automated exposure control or adjustment of mA and/or kV according to the patient size were employed. CLINICAL HISTORY: HEAD INJURY, fall yesterday right posterior hematoma on scalp. COMPARISON: 12/10/2022 FINDINGS: The ventricles are normal in size. There is no hydrocephalus. There is no evidence of intracranial hemorrhage. The posterior fossa is without acute abnormality. The basilar cisterns are preserved. No extra-axial fluid collection is seen. The sinuses are normal. There is a new right occipital scalp edema with a small cephalohematoma. There is no skull fracture. There is a new jesenia hole in the right frontal calvarium. Again seen is a peripherally enhancing mass involving the medial right frontal and parietal lobes and extending across the midline via the corpus callosum. On postcontrast images, this measures 6.4 x 3.9 cm and was 4.8 x 3.0 cm. IMPRESSION: 1. No midline shift or intracranial hemorrhage. 2. Interval increase in size of the intra-axial mass since a prior exam, concerning for progression of disease. 3. Posterior right occipital scalp edema and cephalohematoma. Reviewed, Interpreted and Dictated by Swati Arnold MD Transcribed by Shila Higgins Authenticated and . [facility]
== END ==
PROVIDERS: PCP Nurse Practitioner Family; Visit Provider Nurse Practitioner Family
DX: G93.89 Other specified disorders of brain (principal); S09.90XA Unspecified injury of head, initial encounter; W19.XXXA Unspecified fall, initial encounter
CPT/HCPCS: 70470; Q9966

== ENCOUNTER 2023-01-27 10:47 | Outpatient (RCR) | payer MEDICARE, SELFPAY | END 2023-01-27 10:50 | disposition home or self-care (01) | LOC: PT 10:47 | PROVIDERS: PCP Nurse Practitioner Family; Visit Provider Internal Medicine Hematology & Oncology | DX: R53.1 Weakness (principal); R26.81 Unsteadiness on feet; R53.81 Other malaise | CPT/HCPCS: 97163 ==

== ENCOUNTER 2023-02-28 04:59 | Emergency (ER) | payer MEDICARE, OTHER, SELFPAY ==
[2023-02-28] VITALS (9 sets, daily range): BP systolic 120–133; BP diastolic 50–63; PULSE 72–80; RESP 17–18; TEMP 36.6; O2SAT 93–98; BMI 30.1
--- NOTE | 2023-02-28 05:13 | CT_ITS ---
PROCEDURE INFORMATION: Exam: CT Abdomen And Pelvis With Contrast Exam date and time: 02/28/2023 5:48 AM Age: 67 years old Clinical indication: Abdominal pain TECHNIQUE: Imaging protocol: Computed tomography of the abdomen and pelvis with contrast. Radiation optimization: All CT scans at this facility use at least one of these dose optimization techniques: automated exposure control; mA and/or kV adjustment per patient size (includes targeted exams where dose is matched to clinical indication); or iterative reconstruction. Contrast material: ISOVUE; Contrast volume: 75 ml; Contrast route: IV; REPORTING DATA: Count of CT and Cardiac NM exams in prior 12 months: This patient has received 2 known CTs and 0 known cardiac nuclear medicine studies in the 12 months prior to the current study. COMPARISON: ABDPELWW CT abdomen pelvis wo/w con 04/06/2019 10:27 AM FINDINGS: Liver: Normal. No mass. Gallbladder and bile ducts: Cholecystectomy. Pancreas: Normal. No ductal dilation. Spleen: Normal. No splenomegaly. Adrenal glands: Normal. No mass. Kidneys and ureters: Normal. No hydronephrosis. Stomach and bowel: Moderate colonic stool burden. No bowel obstruction. Appendix: No evidence of appendicitis. Intraperitoneal space: Unremarkable. No free air. No significant fluid collection. 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 Moderate burden of atherosclerotic plaque in the abdominal aorta and branch vessels. No aneurysm. Lymph nodes: Unremarkable. No enlarged lymph nodes. Urinary bladder: Moderate distention of the bladder. Reproductive: Hysterectomy. Bones/joints: Unremarkable. No acute fracture. Soft tissues: Unremarkable. IMPRESSION: No acute findings.
[2023-02-28 05:22] LABS: Basophils % 0.2 % (0.1-2.0); Chloride 105 mmol/L (98-107); Eosinophils # 0.1 K/mm3 (0.0-0.4); Eosinophils % 0.7 % (0.1-12.0); Hematocrit 48.4 % (37.0-47.0); Hemoglobin 15.4 g/dL (12.2-16.2); Lymphocytes # 0.9 K/mm3 (0.7-4.5); Mean Corpuscular HGB Conc 31.8 g/dL (31.8-35.4); Mean Corpuscular Hemoglobin 28.4 pg (27.0-31.2); Mean Corpuscular Volume 89.5 fl (81-99); Mean Platelet Volume 7.4 fl (7.4-10.4); Monocytes # 0.5 K/mm3 (0.1-1.0); Monocytes % 4.2 % (1.7-9.3); Neutrophils # 10.7 K/mm3 (1.8-7.8); Neutrophils % 87.9 % (37.0-80.0); Platelet Count 153 K/mm3 (142-424); Red Blood Count 5.41 M/mm3 (4.20-5.40); Red Cell Distribution Width 17.3 % (11.5-17.5); Sodium 144 mmol/L (136-145); White Blood Count 12.2 K/mm3 (4.8-10.8)
[2023-02-28 05:25] LABS: Alanine Aminotransferase 113 U/L (12-78); Alkaline Phosphatase 77 U/L (38-126); Amylase 106 U/L (30-110); Aspartate Amino Transferase 37 U/L (14-36); Bilirubin,Total 0.7 mg/dl (0.2-1.3); Blood Urea Nitrogen 37 mg/dl (7-17); Carbon Dioxide 31 mmol/L (22.0-30.0); Creatinine Clearance Estimated 68 mL/min (50-200); Estimated Glomerular Filt Rate 84 ml/min (>60); GFR (African American) 102 ML/MIN (>60); Glucose 113 mg/dl (74-100); Lipase 76 U/L (23-300); Magnesium 2.1 mg/dl (1.6-2.3)
[2023-02-28 05:26] LABS: Albumin Level 4.1 g/dl (3.5-5.0); Albumin/Globulin Ratio 1.7 (1.1-1.8); Globulin 2.4 g/dL (1.3-3.2); Total Protein,Serum 6.5 g/dl (6.3-8.2)
[2023-02-28 05:27] LABS: MANUAL DIFFERENTIAL MANUAL DIFFERENTIAL (MANUAL DIFF)
[2023-02-28 05:36] LABS: Lymphocytes % 8 % (10-50); Monocytes % 1 % (2-9); Neutrophils % 91 % (42-76); Platelet Estimate Normal; RBC Morphology Normal; Total Cells Counted 100
--- NOTE | 2023-02-28 07:03 | HMH.EDNVD ---
Discharge Plan Disposition Patient Disposition: Home, Self-Care Prescriptions Prescriptions: New polyethylene glycol 3350 [Miralax] 17 gram/dose powder 17 g PO DAILY 30 Days Qty: 510 0RF No Action furosemide 40 mg Tablet 40 mg PO DAILY atorvastatin 80 mg Tablet 80 mg PO DAILY miconazole nitrate 2 % Cream 1 applic TOPICAL DAILY olanzapine 5 mg tablet 5 mg PO DAILY olanzapine 5 mg tablet 5 mg PO DAILY clopidogrel [Plavix] 75 mg Tablet 75 mg PO DAILY levothyroxine 75 mcg Tablet 75 mcg PO DAILY bisoprolol fumarate [Zebeta] 5 mg Tablet 5 mg PO DAILY dexamethasone 2 mg Tablet 2 mg PO DAILY metformin 1,000 mg Tablet 1,000 mg PO BID gabapentin 300 mg Capsule 300 mg PO TID aspirin 81 mg Tablet,Chewable 81 mg PO DAILY allopurinol 300 mg Tablet 300 mg PO DAILY ondansetron 4 mg Tablet,Disintegrating 4 mg PO Q4-6H PRN (Reason: Nausea) docusate sodium 100 mg Tablet 100 mg PO DAILY hydroxyzine pamoate 25 mg capsule 25 mg PO Q6 insulin lispro 100 unit/mL Insulin Pen 10 unit SQ TID escitalopram oxalate 20 mg Tablet 20 mg PO DAILY levetiracetam 1,000 mg tablet 1,000 mg PO BID empagliflozin 25 mg Tablet 25 mg PO DAILY trazodone 50 mg Tablet 50 mg PO DAILY prochlorperazine maleate [Compazine] 10 mg Tablet 10 mg PO Q6 PRN (Reason: Nausea) pantoprazole 20 mg Tablet,Delayed Release (Dr/Ec) 20 mg PO DAILY albuterol sulfate [Proventil HFA] 90 mcg/actuation Hfa Aerosol Inhaler 1 inh INHALATION QID PRN (Reason: Shortness Of Breath) ranolazine [Ranexa] 500 mg Tablet Extended Release 12 Hr 500 mg PO BID Tradjenta 5 mg Tablet 5 mg PO DAILY vitamin A 2,400 mcg Capsule 2,400 mcg PO DAILY vitamin E 100 unit Tablet 100 unit PO DAILY Vitamin D3 100 mcg (4,000 unit) Capsule 100 mcg PO DAILY vitamin K2 40 mcg Tablet 40 mcg PO DAILY Referrals Follow up/Referrals: Provider,Referral, MD [Primary Care Provider] - See instructions Clinical Impressions Clinical Impression: Fecal impaction in rectum Instructions Patient Instructions: DI for Constipation Discharge ED Provider: Rajiv (ED)Kraig Nausea/Vomiting/Diarrhea HPI General Chief complaint: Nausea/Vomiting/Diarrhea Stated complaint: abdominal pain Time Seen by Provider: 02/28/23 06:30 Mode of Arrival: EMS Source of Information: Patient, Spouse and Medical Record Limitations: No Limitations Description of Symptoms (Recalled from ER Triage Doc. by RN): Pt arrives via ems c c/o abdominal pain (05/01) with constipation and weakness. States that she just finished her first chemo and radiation treatment at on Wednesday for a newly diagnosed malignant brain tumor. Has had abdominal pain since coming home Wednesday. Denies N/V. History of Present Illness HPI Narrative: pt with constipation and weakness - has recent dx of brain cancer and had chemo therapy no vomiting - MD complaint: other (constipation) Onset (ago): day(s) Associated Abdominal Pain: Yes Location of pain: diffuse Severity: moderate Context: other (chemo) Associated symptoms: denies other symptoms Related Data Home Medications Medication Instructions Recorded Confirmed albuterol sulfate 90 mcg/actuation 1 inh inhalation QID PRN Shortness 02/28/23 02/28/23 aerosol inhaler (Proventil HFA) Of Breath allopurinol 300 mg tablet 300 mg PO DAILY gout 02/28/23 02/28/23 aspirin 81 mg chewable tablet 81 mg PO DAILY heart health 02/28/23 02/28/23 atorvastatin 80 mg tablet 80 mg PO DAILY High cholesterol 02/28/23 02/28/23 bisoprolol fumarate 5 mg tablet 5 mg PO DAILY High blood pressure 02/28/23 02/28/23 cholecalciferol (vitamin D3) 100 100 mcg PO DAILY Supplement 02/28/23 02/28/23 mcg (4,000 unit) capsule clopidogrel 75 mg tablet (Plavix) 75 mg PO DAILY heart health 02/28/23 02/28/23 dexamethasone 2 mg tablet 2 mg
--- NOTE | 2023-02-28 07:14 | PC.NURSE ---
Assisted MD with digital disimpaction of patients constipation. Patient was given a fleets enema and instructed to hold the enema for as long as she is able to and call the nurse when she needs to use the bedpan.
[2023-02-28 07:22] LABS: T4 (Thyroxine) 8.6 ug/dl (5.53-11.0)
[2023-02-28 07:36] LABS: Thyroid Stimulating Hormone 1.89 uIU/mL (0.465-4.68)
== END 2023-02-28 08:40 | disposition home or self-care (01) ==
PROVIDERS: Emergency Provider Emergency Medicine
DX: K56.41 Fecal impaction (principal); R10.9 Unspecified abdominal pain; C71.9 Malignant neoplasm of brain, unspecified
CPT/HCPCS: 51702; 74177; 80053; 82150; 83690; 83735; 84436; 84443; 85007; 85025; 96360; 99284; 99285; Q9967

== ENCOUNTER 2023-03-29 21:37 | Observation (INO) | payer MEDICARE, SELFPAY ==
[2023-03-29 21:38] VITALS: BP 130/82; PULSE 89; RESP 16; TEMP 36.8; O2SAT 95; BMI 38.9
--- NOTE | 2023-03-29 21:52 | XR_ITS ---
PROCEDURE INFORMATION: Exam: XR Chest Exam date and time: 03/29/2023 10:14 PM Age: 68 years old Clinical indication: Other: Epigastric pain TECHNIQUE: Imaging protocol: Radiologic exam of the chest. Views: 1 view. COMPARISON: CR XR CHEST 2V 12/05/2022 5:[address] abdomen 02/28/2023 FINDINGS: Lungs: See Pleural spaces finding. Pleural spaces: Mild discoid atelectasis versus scarring left costophrenic angle similar to previous. Lungs are otherwise clear. Heart/Mediastinum: Unremarkable. No cardiomegaly. Bones/joints: Unremarkable. IMPRESSION: Stable chest x-ray with no acute disease.
[2023-03-29 22:01] LABS: Basophils % 0.2 % (0.1-2.0); Chloride 94 mmol/L (98-107); Eosinophils % 0.1 % (0.1-12.0); Hematocrit 39.9 % (37.0-47.0); Hemoglobin 13.3 g/dL (12.2-16.2); Lymphocytes # 0.6 K/mm3 (0.7-4.5); Lymphocytes % 5.8 % (10-50); Mean Corpuscular HGB Conc 33.5 g/dL (31.8-35.4); Mean Corpuscular Hemoglobin 30.2 pg (27.0-31.2); Mean Corpuscular Volume 90.4 fl (81-99); Mean Platelet Volume 7.3 fl (7.4-10.4); Monocytes # 0.4 K/mm3 (0.1-1.0); Neutrophils # 9.1 K/mm3 (1.8-7.8); Neutrophils % 89.9 % (37.0-80.0); Platelet Count 149 K/mm3 (142-424); Red Blood Count 4.41 M/mm3 (4.20-5.40); Red Cell Distribution Width 19.1 % (11.5-17.5); White Blood Count 10.1 K/mm3 (4.8-10.8)
[2023-03-29 22:02] LABS: Potassium 3.5 mmoL/L (3.5-5.1); Sodium 135 mmol/L (136-145)
[2023-03-29 22:05] LABS: Alanine Aminotransferase 49 U/L (12-78); Albumin Level 3.6 g/dl (3.5-5.0); Albumin/Globulin Ratio 1.7 (1.1-1.8); Alkaline Phosphatase 78 U/L (38-126); Anion Gap 16.5 mEq/L (5-15); Aspartate Amino Transferase 37 U/L (14-36); Bilirubin,Total 0.7 mg/dl (0.2-1.3); Blood Urea Nitrogen 38 mg/dl (7-17); Carbon Dioxide 28 mmol/L (22.0-30.0); Creatinine Clearance Estimated 87 mL/min (50-200); Estimated Glomerular Filt Rate 123 ml/min (>60); GFR (African American) 149 ML/MIN (>60); Globulin 2.1 g/dL (1.3-3.2); Glucose 181 mg/dl (74-100); Lipase 77 U/L (23-300); Total Protein,Serum 5.7 g/dl (6.3-8.2)
[2023-03-29 22:06] LABS: MANUAL DIFFERENTIAL MANUAL DIFFERENTIAL (MANUAL DIFF)
[2023-03-29 22:08] LABS: Activated Partial Thrombo Time 23.1 seconds (22.8-30.6); INR 1.03 (0.9-1.1); Prothrombin Time 11.1 seconds (10.1-12.5)
[2023-03-29 22:20] LABS: Troponin I < 0.01 ng/ml (0.00-0.034)
--- NOTE | 2023-03-29 22:34 | CT_ITS ---
PROCEDURE INFORMATION: Exam: CT Abdomen And Pelvis With Contrast Exam date and time: 03/29/2023 10:47 PM Age: 68 years old Clinical indication: Abdominal pain TECHNIQUE: Imaging protocol: Computed tomography of the abdomen and pelvis with contrast. Radiation optimization: All CT scans at this facility use at least one of these dose optimization techniques: automated exposure control; mA and/or kV adjustment per patient size (includes targeted exams where dose is matched to clinical indication); or iterative reconstruction. Contrast material: ISOVUE; Contrast volume: 75 ml; Contrast route: IV; REPORTING DATA: Count of CT and Cardiac NM exams in prior 12 months: This patient has received 3 known CTs and 0 known cardiac nuclear medicine studies in the 12 months prior to the current study. COMPARISON: CT ABDOMEN PELVIS W CON 02/28/2023 5:48 AM and 04/06/2019 FINDINGS: Lungs: Lung bases are clear. Liver: Normal. No mass. Gallbladder and bile ducts: Status post cholecystectomy. Bile ducts within normal limits allowing for prior cholecystectomy. Pancreas: Normal. No ductal dilation. Spleen: Normal. No splenomegaly. Adrenal glands: Normal. No mass. Kidneys and ureters: Normal. No hydronephrosis. Stomach and bowel: Thickened appearance of the wall of the colon extending from the proximal transverse colon through the distal sigmoid although these portions of the colon are also nondistended. GI tract structures otherwise unremarkable with no evident wall thickening allowing for incomplete distention. Appendix: Appendix not visible, but no secondary signs of appendicitis identified. Intraperitoneal space: Unremarkable. No free air. No significant fluid collection. Vasculature: Atherosclerotic changes of the aorta and iliacs noted. No evidence of aneurysm. Varices extending between the SMV and the IVC in the right lower quadrant region redemonstrated. Lymph nodes: Unremarkable. No enlarged lymph nodes. Urinary bladder: Unremarkable as visualized. Reproductive: Status post hysterectomy. Stable appearance of the ovaries dating back to 04/06/2019. Pelvic viscera otherwise unremarkable. Bones/joints: Unremarkable. No acute fracture. Soft tissues: See Reproductive finding. IMPRESSION: 1. Thickened appearance of the colon from the proximal transverse through the distal sigmoid that may be artifactual from nondistention but can not exclude a developing colitis in the proper clinical setting. 2. Additional nonemergent findings as above.
--- NOTE | 2023-03-29 22:36 | HMH.EDGENADL ---
Discharge Plan Disposition Patient Disposition: Admitted As Inpatient Condition: Fair Clinical Impressions Clinical Impression: Colitis, Acute UTI Discharge ED Provider: Ani Boothe Adult HPI General Chief complaint: Nausea/Vomiting/Diarrhea Stated complaint: ABD Pain NA Vomitting Time Seen by Provider: 03/29/23 22:00 Mode of Arrival: EMS Source of Information: Patient Limitations: No Limitations Description of Symptoms (Recalled from ER Triage Doc. by RN): 68 yo female patient dx'd with glioblastoma and currently receiving chemo infusions for treatment presents with n/v/d and abd discomfort for the past few days . Afebrile. States that she has had more than 5 but less than 10 episodes of loose stool in the last 24 hours. Family reports to EMS that she didn't receive any prn antiemetics when discharged from the residential last week. EMS treated patient with zofran 4mg IVP and a 500ml NS infusion. Patient alert, answers all questions easily at this time. History of Present Illness HPI narrative: Patient is a 68-year-old female who is here secondary to abdominal pain,, diarrhea profusely since Wednesday and 1 episode of nausea vomiting. Patient has history of glioblastoma and gets chemotherapy. She has her chemotherapy the Wednesday before and then large bowel movement Wednesday and Wednesday and then diarrhea started Wednesday. She is also complained a lot of suprapubic pressure. No fevers or chills. No headache or dizziness. Patient has no chest pain. Patient has lower abdominal suprapubic pain. Onset (ago): day(s) Location: abdomen Radiation: non-radiation Severity: mild Severity scale (1-10): 4 Quality: aching and dull Consistency: constant Relieving factors: none Exacerbating factors: none Associated symptoms: weakness Treatments prior to arrival: none Related Data Home Medications Medication Instructions Recorded Confirmed albuterol sulfate 90 mcg/actuation 1 inh inhalation QID PRN Shortness 02/28/23 02/28/23 aerosol inhaler (Proventil HFA) Of Breath allopurinol 300 mg tablet 300 mg PO DAILY gout 02/28/23 02/28/23 aspirin 81 mg chewable tablet 81 mg PO DAILY heart health 02/28/23 02/28/23 bisoprolol fumarate 5 mg tablet 5 mg PO DAILY High blood pressure 02/28/23 02/28/23 cholecalciferol (vitamin D3) 100 100 mcg PO DAILY Supplement 02/28/23 02/28/23 mcg (4,000 unit) capsule clopidogrel 75 mg tablet (Plavix) 75 mg PO DAILY heart health 02/28/23 02/28/23 dexamethasone 2 mg tablet 2 mg PO DAILY . 02/28/23 02/28/23 docusate sodium 100 mg tablet 100 mg PO DAILY constipation 02/28/23 02/28/23 empagliflozin 25 mg tablet 25 mg PO DAILY Diabetes 02/28/23 02/28/23 escitalopram oxalate 20 mg tablet 20 mg PO DAILY Anxiety 02/28/23 02/28/23 furosemide 40 mg tablet 40 mg PO DAILY Edema 02/28/23 02/28/23 gabapentin 300 mg capsule 300 mg PO TID nerve pain 02/28/23 02/28/23 hydroxyzine pamoate 25 mg capsule 25 mg PO Q6 Anxiety 02/28/23 02/28/23 insulin lispro 100 unit/mL 10 unit SQ TID Diabetes 02/28/23 02/28/23 subcutaneous pen levetiracetam 1,000 mg tablet 1,000 mg PO BID seizures 02/28/23 02/28/23 levothyroxine 75 mcg tablet 75 mcg PO DAILY thyroid 02/28/23 02/28/23 linagliptin 5 mg tablet (Tradjenta) 5 mg PO DAILY Diabetes 02/28/23 02/28/23 metformin 1,000 mg tablet 1,000 mg PO BID Diabetes 02/28/23 02/28/23 miconazole nitrate 2 % topical 1 applic topical DAILY skin tear 02/28/23 02/28/23 cream olanzapine 5 mg tablet 5 mg PO DAILY Anxiety 02/28/23 02/28/23 olanzapine 5 mg tablet 5 mg PO DAILY mental health 02/28/23 02/28/23 ondansetron 4 mg disintegrating 4 mg PO Q4-6H PRN Nausea 02/28/23 02/28/23 tablet pantoprazole 20 mg tablet,delayed 20 mg PO DAILY gerd 02/28/23 02/28/23 release prochlorperazine maleate 10 mg 10 mg PO Q6 PRN Nausea 02/28/23 02/28/23 tablet (Compazine) ranolazine 500 mg tablet,extended 500 mg PO BID Chest pain 02/28/23 02/28/23 release,12 hr trazodone 50 mg tablet 50 mg PO DAILY P
--- NOTE | 2023-03-29 22:42 | PC.NURSE ---
patient gone to RAD at this time.
[2023-03-29 23:00] VITALS: BP 120/66; PULSE 78; O2SAT 97
[2023-03-29 23:01] LABS: Lymphocytes % 11 % (10-50); Monocytes % 2 % (2-9); Neutrophils % 87 % (42-76); Platelet Estimate Slight Decrease; RBC Morphology Normal; Total Cells Counted 100
[2023-03-29 23:30] VITALS: BP 122/65; PULSE 76; O2SAT 93
[2023-03-29 23:58] LABS: Microscopic, Urine URINE MICROSCOPIC (MICROSCOPIC)
[2023-03-30] VITALS (16 sets, daily range): BP systolic 111–130; BP diastolic 51–75; PULSE 63–110; RESP 16–19; TEMP 36.4–36.7; O2SAT 91–97; BMI 70.0
[2023-03-30 00:06] LABS: Lactic Acid 2.8 mmol/L (0.7-2.1)
[2023-03-30 00:12] LABS: Appearance,Urine CLOUDY (Clear); Bilirubin,Urine Negative (Negative); Blood, Urine 2+ (Negative); Color,Urine YELLOW (Yellow); Glucose,Urine (UA) 3+ (Negative); Ketones,Urine Negative (Negative); Leukocyte Esterase,Urine 2+ (Negative); Nitrate,Urine Negative (Negative); PH,Urine 5.5 (5.0-8.5); Protein,Urine Negative (Negative); Urobilinogen,Urine 0.2 EU/dl (0.2)
[2023-03-30 00:19] LABS: Bacteria,Urine 1+ /lpf; Squamous Epithelial Cell,Urine Occasional #/hpf (0-5); WBC,Urine TNTC #/hpf (0-3); Yeast,Urine 1+ /lpf
--- NOTE | 2023-03-30 01:40 | PC.NURSE ---
call placed to house for bed assignment. dta in at this time.
--- NOTE | 2023-03-30 01:53 | ECG_ITS ---
APPROVED REPORT Exam: Resting ECG HR:69 bpm ECG Measurements Heart Rate 69 AXES LA 169 P 57 QRSd 146 QRS -23 QT 446 T 14 QTc 465 Conclusion SINUS RHYTHM BORDERLINE LEFT AXIS DEVIATION [QRS AXIS < -20] RIGHT BUNDLE BRANCH BLOCK [120+ ms QRS DURATION, UPRIGHT V1, 40+ ms S IN I/aVL/V4/V5/V6] ABNORMAL ECG UNCONFIRMED REPORT Electronically signed by : Vamsi Langford MD 03/30/2023 22:04:32
--- NOTE | 2023-03-30 01:56 | PC.NURSE ---
Hospitalist in room talking with patient at this time.
[2023-03-30 01:59] LABS: Coronavirus 19, PCR Not Detected (NotDetected); Influenza A, PCR Not Detected (NotDetected); Influenza B, PCR Not Detected (NotDetected)
--- NOTE | 2023-03-30 02:20 | PC.NURSE ---
pT. ARRIVED TO FLOOR AT THIS TIME.
--- NOTE | 2023-03-30 02:22 | EXP.HP ---
History of Present Illness *Admission Date: 03/30/23 *Reason for visit:: abdominal pain, diarrhea *History of present illness: Ms. Conroy is a 68 year old female who presented to the ER with complaints of abdominal pain with diarrhea. Patient stated she had chemo treatment on Wednesday and diarrhea started later that day. She denies any nausea, fever or chills. Work-up in the ER, patient with unremarkable CBC. Chemistry panel unremarkable. Lactate elevated at 2.8. She was started on IVF resuscitation. CT abdomen/pelvis demonstrated findings suggestive of colitis. Patient noted to have recent admission approximately 1 month ago 2' to fecal impaction. Urinalysis abnormal, suspicious for UTI. She was given rocephin 1 mg IV and Flagyl 500 mg IV in the ER. Discussion with ER phsycian, Dr. Boothe - agree with need for admission for treatment of colitis and UTI with IVF resuscitation and IV antibiotics. [facility] Disclaimer: The information contained in this section may have been updated after the patient was seen, as this information can be updated by other users. Medical History (Updated 03/30/23 @ 02:46 by Virginia Patel APRN) Acquired hypothyroidism Anemia Anxiety Atypical chest pain CAD (coronary artery disease) Depression Diabetes mellitus, type 2 History of heart attack Hyperlipidemia Hypertension Liver disease Right bundle branch block Unstable angina Surgical History History of appendectomy History of cholecystectomy History of heart artery stent History of hysterectomy History of tonsillectomy Family History Other Cancer Coronary artery disease Stroke Social History Smoking Status: Never smoker second hand exposure: No alcohol intake: never substance use type: denies use current occupational status: unemployed Travel in the last 8 weeks: Inside the [place] household members: spouse housing: house current occupational exposures/hazards: No caffeine: Yes Review of Systems Constitutional Constitutional: Reports frequent falls, Reports lethargy and Reports weakness ENT Ears, Nose, Mouth, and Throat: Reports disequilibrium *Cardiovascular Cardiovascular: Denies chest pain, Denies dyspnea and Denies palpitations *Respiratory Respiratory: Denies dyspnea *Gastrointestinal Gastrointestinal: Reports abdominal pain, Reports diarrhea, Denies nausea and Denies vomiting *Musculoskeletal Musculoskeletal: Reports muscle weakness Comments: Patient stated she has been falling at home frequently. Uses a rolator. *Neurologic Neurologic: Reports disequilibrium, Reports frequent falls and Reports weakness Endocrine Endocrine: Denies palpitations Meds Home Medications and Allergies Home Medications Medication Instructions Recorded Confirmed Type albuterol sulfate 90 mcg/actuation 1 inh inhalation QID PRN Shortness 02/28/23 02/28/23 History aerosol inhaler (Proventil HFA) Of Breath allopurinol 300 mg tablet 300 mg PO DAILY gout 02/28/23 02/28/23 History aspirin 81 mg chewable tablet 81 mg PO DAILY heart health 02/28/23 02/28/23 History bisoprolol fumarate 5 mg tablet 5 mg PO DAILY High blood pressure 02/28/23 02/28/23 History cholecalciferol (vitamin D3) 100 100 mcg PO DAILY Supplement 02/28/23 02/28/23 History mcg (4,000 unit) capsule clopidogrel 75 mg tablet (Plavix) 75 mg PO DAILY [facility] 02/28/23 02/28/23 History dexamethasone 2 mg tablet 2 mg PO DAILY . 02/28/23 02/28/23 History docusate sodium 100 mg tablet 100 mg PO DAILY constipation 02/28/23 02/28/23 History empagliflozin 25 mg tablet 25 mg PO DAILY Diabetes 02/28/23 02/28/23 History escitalopram oxalate 20 mg tablet 20 mg PO DAILY Anxiety 02/28/23 02/28/23 History furosemide 40 mg tablet 40 mg PO DAILY Edema 02/28/23 02/28/23 History gabapentin 300 mg capsule 300
--- NOTE | 2023-03-30 02:56 | PC.WOUNDNOTE ---
STAGE ONE PRESSURE SORES NOTED TO BOTTOM PT ABDOMEN ABDOMEN LEFT ANKLE L ARM LEFT SIDE
[2023-03-30 03:55] LABS: Reflex Lactic Add Lactic Reflex
--- NOTE | 2023-03-30 04:05 | PC.NURSE ---
Pt unable to state home medications. States daughter will be here in the morning and she is the one that manages pt meds at home.
[2023-03-30 04:57] LABS: Basophils % 0.2 % (0.1-2.0); Eosinophils % 0.5 % (0.1-12.0); Hematocrit 35.4 % (37.0-47.0); Hemoglobin 12.1 g/dL (12.2-16.2); Lactic Acid Follow Up (RFLX 1) 1.9 mmol/L (0.7-2.1); Lymphocytes # 0.6 K/mm3 (0.7-4.5); Lymphocytes % 9.1 % (10-50); Mean Corpuscular HGB Conc 34.2 g/dL (31.8-35.4); Mean Corpuscular Volume 90.8 fl (81-99); Mean Platelet Volume 7.8 fl (7.4-10.4); Monocytes # 0.3 K/mm3 (0.1-1.0); Monocytes % 5.1 % (1.7-9.3); Neutrophils # 5.8 K/mm3 (1.8-7.8); Neutrophils % 85.1 % (37.0-80.0); Platelet Count 128 K/mm3 (142-424); Red Blood Count 3.91 M/mm3 (4.20-5.40); Red Cell Distribution Width 19.1 % (11.5-17.5); White Blood Count 6.8 K/mm3 (4.8-10.8)
[2023-03-30 04:59] LABS: Alanine Aminotransferase 35 U/L (12-78); Albumin Level 2.9 g/dl (3.5-5.0); Albumin/Globulin Ratio 1.5 (1.1-1.8); Alkaline Phosphatase 58 U/L (38-126); Aspartate Amino Transferase 25 U/L (14-36); Bilirubin,Total 0.5 mg/dl (0.2-1.3); Blood Urea Nitrogen 31 mg/dl (7-17); Calcium 7.9 mg/dl (8.4-10.2); Carbon Dioxide 27 mmol/L (22.0-30.0); Chloride 101 mmol/L (98-107); Creatinine Clearance Estimated 44 mL/min (50-200); Estimated Glomerular Filt Rate 160 ml/min (>60); GFR (African American) 193 ML/MIN (>60); Glucose 94 mg/dl (74-100); Magnesium 1.6 mg/dl (1.6-2.3); Phosphorous 3.4 mg/dl (2.5-4.5); Sodium 137 mmol/L (136-145); Total Protein,Serum 4.9 g/dl (6.3-8.2)
[2023-03-30 05:29] LABS: Thyroid Stimulating Hormone 0.54 uIU/mL (0.465-4.68)
[2023-03-30 06:00] LABS: POC Glucose,Bedside 104 (70-110)
--- NOTE | 2023-03-30 09:06 | EXP.PN ---
Subjective *Date: 03/30/23 *Time: 10:28 Interval history: Date of service 03/30/2023 The patient was admitted through the reel stripper hours by our microsoft solutions architect. She reports that she ate breakfast with no difficulty and was able to experience a bowel movement and flatus. She lives in [place] and is currently under the care of [facility] for her brain tumor. She is still her providers at 2 days ago and continues with chemo and radiation therapy. Her morning CBC identifies a normal white blood cell count and stable hemoglobin. Her electrolytes identify potassium deficiency which is being replaced. Exam Data for Last 24 hours Vital signs and Labs for Last 24 Hours: Temp Pulse Resp BP Pulse Ox 98.0 F 63 16 119/57 L 94 L 03/30/23 07:15 03/30/23 07:15 03/30/23 07:15 03/30/23 07:15 03/30/23 07:15 Laboratory Results - last 24 hr 03/29/23 21:54: WBC 10.1, RBC 4.41, Hgb 13.3, Hct 39.9, MCV 90.4, MCH 30.2, MCHC 33.5, RDW 19.1 H, Plt Count 149, MPV 7.3 L, Neut % (Auto) 89.9 H, Lymph % (Auto) 5.8 L, [place] % (Auto) 4.0, Eos % (Auto) 0.1, Baso % (Auto) 0.2, Neut # (Auto) 9.1 H, Lymph # (Auto) 0.6 L, [place] # (Auto) 0.4, Eos # (Auto) 0.0, Baso # (Auto) 0.0, Total Counted 100, Neutrophils % (Manual) 87 H, Lymphocytes % (Manual) 11, Monocytes % (Manual) 2, Platelet Estimate Slight decrease, RBC Morphology Normal 03/29/23 21:54: PT 11.1, INR 1.03, APTT 23.1 03/29/23 21:54: Sodium 135 L, Potassium 3.5, Chloride 94 L, Carbon Dioxide 28, Anion Gap 16.5 H, BUN 38 H, Creatinine 0.50 L, Estimated Creat Clear 87, Estimated GFR 123, Est GFR ( Amer) 149, Glucose 181 H, Calcium 9.0, Total Bilirubin 0.7, AST 37 H, ALT 49, Alkaline Phosphatase 78, Troponin I < 0.01, Total Protein 5.7 L, Albumin 3.6, Globulin 2.1, Albumin/Globulin Ratio 1.7, Lipase 77 03/29/23 23:50: Urine Color Yellow, Urine Appearance Cloudy, Urine pH 5.5, Ur Specific [place] 1.010, Urine Protein Negative, Urine Glucose (UA) 3+, Urine Ketones Negative, Urine Blood 2+, Urine Nitrate Negative, Urine Bilirubin Negative, Urine Urobilinogen 0.2, Ur Leukocyte Esterase 2+ A, Urine RBC 5-10, Urine WBC Tntc, Ur Squamous Epith Cells Occasional, Urine Bacteria 1+, Urine Yeast 1+ 03/29/23 23:50: Lactate 2.8 H 03/30/23 01:55: SARS-CoV-2 (PCR) Not detected, Influenza A Untype (PCR) Not detected, Influenza Type B (PCR) Not detected 03/30/23 04:40: WBC 6.8 D, RBC 3.91 L, Hgb 12.1 L, Hct 35.4 L, MCV 90.8, MCH 31.0, MCHC 34.2, RDW 19.1 H, Plt Count 128 L, MPV 7.8, Neut % (Auto) 85.1 H, Lymph % (Auto) 9.1 L, [place] % (Auto) 5.1, Eos % (Auto) 0.5, Baso % (Auto) 0.2, Neut # (Auto) 5.8, Lymph # (Auto) 0.6 L, [place] # (Auto) 0.3, Eos # (Auto) 0.0, Baso # (Auto) 0.0 03/30/23 04:40: Sodium 137, Potassium 3.0 L, Chloride 101, Carbon Dioxide 27, Anion Gap 12.0, BUN 31 H, Creatinine 0.40 L, Estimated Creat Clear 44, Estimated GFR 160, Est GFR ( Amer) 193 D, Glucose 94 D, Calcium 7.9 L, Phosphorus 3.4, Magnesium 1.6, Total Bilirubin 0.5, AST 25 D, ALT 35 D, Alkaline Phosphatase 58, Total Protein 4.9 L, Albumin 2.9 L D, Globulin 2.0, Albumin/Globulin Ratio 1.5, TSH 0.54 03/30/23 04:40: Lactate 1.9 03/30/23 05:47: POC Glucose 104 I & O for Last 24 hours: Intake & Output 03/27/23 03/28/23 03/29/23 03/30/23 23:59 23:59 23:59 23:59 Intake Total 758 / 758 Balance 758 / 758 Weight 99.79 kg 179.4 kg Constitutional Constitutional: no acute distress, chronically ill appearing and cooperative *Routine HEENT Exam Head: Present normocephalic Eye: Present EOMI and PERRL ENT: Present mucous membranes moist *Routine Neck Exam Neck: Present supple; Absent lymphadenopathy *Routine Respiratory Exam Respiratory: Present rhonchi and normal respiratory effort *Routine Cardiovascular Exam Cardiovascular: Present RRR *Routine Abdominal Exam Abdominal: Present soft and normoactive bowel sounds; Absent tenderness *Routine Extremities Exam Extremities: Absent cyanosis, clubbing or edema *Routine Skin Exam Skin:
--- NOTE | 2023-03-30 11:39 | SW/DCPLANNER ---
Addendum entered by Stacy Zhao 03/31/23 15:04: Ayesha barba/ [facility] stated that services will begin tomorrow for this patient. Addendum entered by Stacy Zhao 03/31/23 11:05: Patient information/order has been faxed to [facility]. Original Note: This patient currently resides at home and home health services ([facility]) was suppose to start prior to hospital admission. Patient recently discharged home from [place] on 03/26/23. Per daughter (Donna) the plan for this patient is to resume home with assistance from family, home DME and restart [facility]. Patient may be ready for discharge tomorrow pending no setbacks.
[2023-03-30 11:42] LABS: POC Glucose,Bedside 137 (70-110)
--- NOTE | 2023-03-30 11:47 | HMH.PTEV ---
Physical Therapy Evaluation Rehab PT IP Evaluation Start: 03/30/23 10:05 Freq: ONCE Status: Active Protocol: Document 03/30/23 11:00 PHORLEIGH ANN (Rec: 03/30/23 11:47 PHORNE [id number]) Subjective/History History History 68 yowf adm to [facility] with ABD pain and diarrhea. She has hx of brain tumor and is currently undergoing chemo. SHe reports she lives with her who assists her with some of her ADLs, she ambulates as much as I can at home with RW, 1 step to enter the home. Subjective Subjective Pt reports she feels weak this am, agrees to limited mobility assessment. Rehab PT IP Eval Objective Appearance Patient Behavior Appropriate Patient Orientation Person,Place,Time Difficulty following instructions none Speech Pattern Clear Ambulation Patient Able to Ambulate No Balance Ability to Arise Able, uses arms to help Sitting Balance Leans or slides in chair Dynamic Sitting Balance Ability Fair Transfers Bed Transfer Ability Maximum x 1 (75% assist) ROM All Extremities PT ROM Status WFL MMT LLE PT MMT ABN Abnormal MMT Grade grossly 1/5 LUE PT MMT ABN Abnormal MMT Grade grossly 1/5 Rehab PT IP prob,goals,plan Problems Date of Evaluation: 03/30/23 PT IP Problems Bed Mobility,Transfers,Gait Rehab Potential Rehab Potential Fair Plan PT Intervention Plan Bed Mobility,Transfers,Gait, Therapeutic Exercise PT Plan Frequency Daily Duration LOS Discharge Goals Bed Transfer Ability Moderate x 2 (50% assist) Sit to Stand Chair Transfer Ability Moderate x 2 (50% assist) Ambulation Assistive Device Rolling Walker Ambulation Distance (feet) 5 Discharge Plan PT Discharge Plan Pt is currently most appropriate for rehab placement once medically stable for d/c. If she returns home she will need home health therapy upon d/c. G -code Required No Eval Complexity Eval Charge Codes 45163 - Moderate Complexity PHYSICIAN CERTIFICATION: I certify the specified therapy
--- NOTE | 2023-03-30 13:49 | HMH.OTEV ---
OT Inpatient Evaluation Rehab OT IP Evaluation Start: 03/30/23 10:05 Freq: ONCE Status: Active Protocol: [facility]23 [facility]Rec: 03/30/23 13:48 [facility] [id number]) Rehab OT IP Assessment Subjective History Pt oriented x 3 on arrival. Pt agreeable to engage in therapy evaluation. Pt admitted on 03/30/23 due to abdominal pain and diarrhea. Prior to being in the hospital , pt lived at home with her . Pt reports she required assistance with dressing and bathing. She could feed herself independently. She was dependent upon for completion of IADLs. Pt reports she was transferring herself independently with a rollator prior to being in the hospital. Subjective Pt reports she feels significantly weaker than she has previously. Objective Patient Orientation Person,Place,Birthday Upper Extremity Gross ROM Sev Limitation >75% Shoulder ROM Limitations Muscle Weakness Elbow ROM Limitations Muscle Weakness Wrist Limitations of Range of Motion Muscle Weakness Bed Mobility bed mobility-scooting,bed mobility - supine/sit,bed mobility - rolling Assist Level Maximum x 2 (75% assist) Rehab OT IP prob,goals,plan Problems Date of Evaluation: 03/30/23 OT IP Problems Bed Mobility,Transfers,Balance ,Self care,Safety Rehab Potential Rehab Potential Fair Equipment Needs Assistive Devices Rolling / Wheeled Walker, Wheelchair Plan OT intervention Plan Bed Mobility,Transfers,Balance ,Self care,Safety,Therapeutic Exercise OT Plan Frequency BID Duration LOS Discharge Goals Bed Mobility Ability Assistance x1 Sit to Stand Chair Transfer Ability Moderate x 1 (50% assist) Chair Transfer Ability Maximum x 1 (75% assist) Chair Transfer Technique Stand Pivot Chair Transfer Assistive Devices Rolling Walker Feeding Ability Assist with Tray Set Up Lower Body Dressing Ability Assistance X1 Upper Body Dressing Abili
[2023-03-30 15:37] LABS: Occult Blood,Stool Positive (Negative)
[2023-03-30 17:20] LABS: POC Glucose,Bedside 262 (70-110)
--- NOTE | 2023-03-30 18:39 | PC.NURSE ---
Patient anxious during shift after lunch. Family at bedside to visit. VS stable and patient remained on room air. Turned q2. stool sample sent.
[2023-03-31] VITALS: BP 165/74; PULSE 110; PULSE 98; RESP 18; TEMP 37.1; O2SAT 95
[2023-03-31 04:00] VITALS: BP 130/66; PULSE 76; PULSE 80; RESP 18; TEMP 36.9; BMI 32.8
[2023-03-31 06:55] LABS: Anion Gap 13.8 mEq/L (5-15); Blood Urea Nitrogen 11 mg/dl (7-17); Calcium 7.6 mg/dl (8.4-10.2); Carbon Dioxide 23 mmol/L (22.0-30.0); Chloride 107 mmol/L (98-107); Creatinine Clearance Estimated 73 mL/min (50-200); Estimated Glomerular Filt Rate 355 ml/min (>60); GFR (African American) 430 ML/MIN (>60); Glucose 126 mg/dl (74-100); Potassium 4.8 mmoL/L (3.5-5.1); Sodium 139 mmol/L (136-145)
[2023-03-31 07:26] VITALS: BP 128/68; PULSE 90; RESP 18; TEMP 37.1; O2SAT 96
[2023-03-31 08:00] VITALS: PULSE 70
--- NOTE | 2023-03-31 10:18 | HMH.PHAINT1 ---
Pharmacy Intervention Comments: HOME MEDICATIONS VERIFIED FROM OUTPATIENT PHARMACY LIST
--- NOTE | 2023-03-31 10:49 | EXP.DC.SUM ---
General Admission date:: 03/30/23 Discharge date: 03/31/23 HPI HPI HPI: Ms. Conroy is a 68 year old female who presented to the ER with complaints of abdominal pain with diarrhea. Patient stated she had chemo treatment on Wednesday and diarrhea started later that day. She denies any nausea, fever or chills. Work-up in the ER, patient with unremarkable CBC. Chemistry panel unremarkable. Lactate elevated at 2.8. She was started on IVF resuscitation. CT abdomen/pelvis demonstrated findings suggestive of colitis. Patient noted to have recent admission approximately 1 month ago 2' to fecal impaction. Urinalysis abnormal, suspicious for UTI. She was given rocephin 1 mg IV and Flagyl 500 mg IV in the ER. Discussion with ER phsycian, Dr. Boothe - agree with need for admission for treatment of colitis and UTI with IVF resuscitation and IV antibiotics. Hospital Course Hospital Course Hospital Course: The patient was admitted to the medical unit with blood, urine and stool studies requested. She was started on IV antibiotic that included Rocephin and metronidazole for colitis identified on CT scan of the abdomen. She identified improvement and p.o. was well-tolerated with no nausea or vomiting. Her diarrhea resolved. She identified effective flatus and bowel elimination. She identified improvement and inquired about discharge home. Her laboratory studies and inflammatory markers were trended and identified improvement and stability. She will be discharged home to the care of her family for ongoing care concerning her glioblastoma. Family (Donna daughter) report that they continue to have ongoing goals of care conversation with her poor prognoses. They plan to continue follow-up with her PCP, neurologist and [facility] treatment team. I spent 35 minutes in [id number] time with the patient and nursing staff concerning the discharge process. We discussed the admitting diagnoses and hospital course. We discussed identified improvement and the patient's desire to be discharged. We reviewed inpatient studies and imaging. The patient voiced understanding on the importance of follow-up with her primary care provider and specialist(s). The patient plans to be compliant with the medication regimen prescribed and follow-up appointments. She understands that she can return to the emergency department with any sudden changes or concerns. Exam Data for Last 24 hours Vital signs and Labs for Last 24 Hours: Temp Pulse Resp BP Pulse Ox 98.7 F 70 18 128/68 96 03/31/23 07:26 03/31/23 08:00 03/31/23 07:26 03/31/23 07:26 03/31/23 07:26 Laboratory Results - last 24 hr 03/29/23 23:50: Urine Color Yellow, Urine Appearance Cloudy, Urine pH 5.5, Ur Specific [place] 1.010, Urine Protein Negative, Urine Glucose (UA) 3+, Urine Ketones Negative, Urine Blood 2+, Urine Nitrate Negative, Urine Bilirubin Negative, Urine Urobilinogen 0.2, Ur Leukocyte Esterase 2+ A, Urine RBC 5-10, Urine WBC Tntc, Ur Squamous Epith Cells Occasional, Urine Bacteria 1+, Urine Yeast 1+ 03/30/23 11:24: Stool Occult Blood Positive A 03/30/23 11:32: POC Glucose 137 H 03/30/23 16:54: POC Glucose 262 H 03/31/23 05:54: Sodium 139, Potassium 4.8 D, Chloride 107, Carbon Dioxide 23, Anion Gap 13.8, BUN 11 D, Creatinine 0.20 L D, Estimated Creat Clear 73, Estimated GFR 355, Est GFR ( Amer) 430 D, Glucose 126 H, Calcium 7.6 L I & O for Last 24 hours: Intake & Output 03/28/23 03/29/23 03/30/23 03/31/23 23:59 23:59 23:59 23:59 Intake Total 1956 / 2156 1510 / 1510 Output Total 300 / 1200 1400 / 1400 Balance 1656 / 956 110 / 110 Weight 99.79 kg 179.4 kg 83.915 kg Microbiology Reports for the Last 24 Hours: Microbiology 03/29/23 23:50 Urine,Clean Catch Urine Culture - Preliminary Gram Negative Rods Constitutional Constitutional: no acute distress, chronically ill appearing and cooperative *Routine HEENT Exam Head: Present
[2023-03-31 11:10] VITALS: BP 160/90; PULSE 107; RESP 16; TEMP 36.5; O2SAT 98
--- NOTE | 2023-03-31 11:14 | HMH.PHAINT1 ---
Pharmacy Intervention Comments: DISCHARGE COUNSELING ATTEMPTED. UNABLE TO COMPLETE DUE TO PATIENT'S CONDITION. SPOKE WITH NURSE WHO WILL INFORM THE PATIENT'S DAUGHTER OF MEDICATION CHANGES (LEVOFLOXACIN).
[2023-03-31 11:29] LABS: POC Glucose,Bedside 122 (70-110)
--- NOTE | 2023-03-31 11:33 | PC.NURSE ---
Notified daughter that pt will be DC today.
[2023-03-31 12:00] VITALS: PULSE 110
--- NOTE | 2023-04-01 12:56 | CARE MANAGER ---
Contacted patient's daughter, Donna, and notified of antibiotic change which was called into [facility] pharmacy. Home health came today and they don't have any questions or concerns. TREVOR Guzman
== END 2023-03-31 14:09 | disposition home or self-care (01) ==
LOC: ER 22:41 → 2ND 03-30 01:54
PROVIDERS: Family Medicine; Nurse Practitioner; Admitting Provider Internal Medicine Adolescent Medicine; Emergency Provider Emergency Medicine; Visit Provider Internal Medicine Adolescent Medicine
DX: K52.9 Noninfective gastroenteritis and colitis, unspecified (principal); C71.5 Malignant neoplasm of cerebral ventricle; I10 Essential (primary) hypertension; N39.0 Urinary tract infection, site not specified; E11.42 Type 2 diabetes mellitus with diabetic polyneuropathy; E78.2 Mixed hyperlipidemia; I25.10 Atherosclerotic heart disease of native coronary artery without angina pectoris; I65.23 Occlusion and stenosis of bilateral carotid arteries; E03.9 Hypothyroidism, unspecified; Z79.4 Long term (current) use of insulin; Z79.01 Long term (current) use of anticoagulants; Z79.810 Long term (current) use of selective estrogen receptor modulators (SERMs); Z79.52 Long term (current) use of systemic steroids; R29.6 Repeated falls; Z20.822 Contact with and (suspected) exposure to COVID-19; K92.1 Melena; R19.7 Diarrhea, unspecified
CPT/HCPCS: G0378; 36415; 71045; 74177; 80048; 80053; 81001; 82272; 82962; 83605; 83690; 83735; 84100; 84443; 84484; 85007; 85025; 85610; 85730; 87040; 87045; 87086; 87088; 87186; 87205; 93005; 97162; 97166; 97530; 99285; C9803; G0328; J0696; J2405; J3475; Q9967; U0003; U0005